=== PATIENT | male | born 1960 | race Two or more races ===

== ENCOUNTER 2020-09-04 14:32 | Inpatient (IN) | payer OTHER ==
[2020-09-04 17:48] VITALS: BMI 25.0
[2020-09-04] MEDS ORDERED: LOPERAMIDE HCL 2 MG CAPSULE PO PRN (18:01)
[2020-09-04] MEDS ORDERED: MAGNESIUM CITRATE 300 ML BOTTLE PO PRN (18:01)
[2020-09-04] MEDS ORDERED: MAG HYDROX/AL HYDROX/SIMETH 30 ML UNIT-DOSE CUP PO PRN (18:01)
[2020-09-04] MEDS ORDERED: MAGNESIUM HYDROX 2400MG/30ML ORAL SUSPENSION 30 ML CUP PO PRN (18:01)
[2020-09-04] MEDS ORDERED: P-EPHED 60MG/TRIPROLIDI 2.5MG TABLET PO PRN (18:01)
[2020-09-04] MEDS ORDERED: ACETAMINOPHEN 325 MG TABLET (FP) PO PRN (18:01)
[2020-09-04] MEDS ORDERED: guaiFENesin 200 MG/10 ML 10 ML UNIT-DOSE CUPS PO PRN (18:01)
[2020-09-04] MEDS ORDERED: NITROGLYCERIN SUBLINGUAL 1/150 0.4 MG TAB SL PRN (21:42)
[2020-09-04] MEDS ORDERED: RANOLAZINE E.R. 1,000 MG TABLET (FP) PO SCH (22:00)
[2020-09-04] MEDS ORDERED: SODIUM ZIRCONIUM CYCLOSILICATE (LOKELMA) 10 GM PACKET PO SCH (22:00)
[2020-09-04] MEDS ORDERED: TUBERCULIN PPD 5 TU/0.1ML VIAL ID ONE ×3 (22:16→23:32)
[2020-09-04] MEDS: INSULIN SLIDING SCALE (NOVOLOG) 1 VIAL SQ SCH (22:43)
[2020-09-04] MEDS: TICAGRELOR 90 MG TABLET PO SCH (23:25)
[2020-09-04] MEDS: KETOROLAC TROMETHAMINE 0.5% EYE DROP 1 DROP DROPS OU SCH (23:26)
[2020-09-04] MEDS: MELATONIN 5 MG TABLETS PO SCH (23:26)
[2020-09-04] MEDS: GABAPENTIN 300 MG CAPSULE PO SCH (23:26)
[2020-09-04] MEDS: prednisoLONE ACETATE 1% OPHTH SUSP 5 ML BOTTLE OU SCH (23:27)
[2020-09-04] MEDS: RANOLAZINE E.R. 1,000 MG TABLET (FP) PO SCH (23:27)
[2020-09-04] MEDS: THIAMINE HCL 100 MG TABLET (FP) PO SCH (23:32)
[2020-09-04] MEDS: ALBUTEROL SO4 HFA INHALER IH SCH (23:32)
[2020-09-04] MEDS: EZETIMIBE 10 MG TABLET (FP) PO SCH (23:33)
[2020-09-05] MEDS: GABAPENTIN 300 MG CAPSULE PO SCH ×3 (06:21→21:06)
[2020-09-05] MEDS: ALBUTEROL SO4 HFA INHALER IH SCH ×3 (06:21→21:09)
[2020-09-05] MEDS: metFORMIN HCL 500 MG TABLET (FP) PO SCH ×2 (07:10→16:41)
[2020-09-05] MEDS: sitaGLIPtin PHOSPHATE 50 MG TABLET PO SCH (07:10)
[2020-09-05] MEDS: INSULIN SLIDING SCALE (NOVOLOG) 1 VIAL SQ SCH ×4 (07:10→21:12)
[2020-09-05] MEDS: TAMSULOSIN HCL 0.4 MG CAP PO SCH (07:50)
[2020-09-05] MEDS: PRENATAL VITAMINS W/ FOLIC ACID TABLET (FP) PO SCH (10:43)
[2020-09-05] MEDS: OMEGA-3 ACID ETHYL ESTERS (FATTY-ACIDS) 1 GM CAPSULE (FP) PO SCH (10:43)
[2020-09-05] MEDS: metoPROLOL SUCCINATE 25 MG TAB.SR.24H (FP) PO SCH (10:44)
[2020-09-05] MEDS: ISOSORBIDE MONONITRATE 60 MG TAB.SR.24H (FP) PO SCH (10:44)
[2020-09-05] MEDS: NIFEdipine E.R. 30 MG TABLET PO SCH (10:45)
[2020-09-05] MEDS: TICAGRELOR 90 MG TABLET PO SCH ×2 (10:46→21:07)
[2020-09-05] MEDS: ASPIRIN 81 MG CHEWABLE TABLETS PO SCH (10:46)
[2020-09-05] MEDS: NICOTINE 7 MG/24 HOURS TOPICAL PATCH TD SCH (10:46)
[2020-09-05] MEDS: prednisoLONE ACETATE 1% OPHTH SUSP 5 ML BOTTLE OU SCH ×4 (10:46→21:08)
[2020-09-05] MEDS: PANTOPRAZOLE 40 MG TABLET PO SCH (10:46)
[2020-09-05] MEDS: KETOROLAC TROMETHAMINE 0.5% EYE DROP 1 DROP DROPS OU SCH ×4 (10:47→21:08)
[2020-09-05] MEDS: SERTRALINE HCL 50 MG TABLET (FP) PO SCH (11:07)
[2020-09-05] MEDS: RANOLAZINE E.R. 1,000 MG TABLET (FP) PO SCH ×2 (11:08→21:06)
[2020-09-05 11:44] LABS: EPI CELLS 31 /uL (0-25.1); HYALINE CASTS 3 /uL (0-3.1); URINE APPEARANCE CLEAR; URINE BACTERIA 443 /uL (0-1359); URINE BILIRUBIN NEGATIVE (NEGATIVE); URINE COLOR YELLOW; URINE GLUCOSE (UA) TRACE (NEGATIVE); URINE KETONE TRACE (NEGATIVE); URINE LEUK ESTERASE 1+ (NEGATIVE); URINE NITRITE NEGATIVE (NEGATIVE); URINE PROTEIN NEGATIVE (NEGATIVE); URINE RBC 4 /uL (0-23.9); URINE UROBILINOGEN 0.2 mg/dL (0.2-1.0); URINE WBC 74 /uL (0-25.8)
[2020-09-05 11:47] LABS: HEMATOCRIT 33.2 % (35.4-49); HEMOGLOBIN 10.4 GM/dL (11.7-16.9); MCH 23.3 pg (25.7-33.7); MCHC 31.2 g/dl (32.0-35.9); MEAN CELL VOLUME 74.6 fl (80-96); MEAN PLT VOLUME 10.7 fl (7.5-11.1); PLATELET COUNT 266 K/MM3 (134-434); RBC 4.45 M/mm3 (4.00-5.60); RDW 18.7 % (11.9-15.9); WHITE BLOOD COUNT 9.1 K/mm3 (4.0-10.0)
[2020-09-05 11:48] LABS: POTASSIUM 4.1 mmol/L (3.5-5.1)
[2020-09-05 11:59] LABS: ALBUMIN 3.8 g/dl (3.4-5.0)
[2020-09-05 12:00] LABS: BLOOD UREA NITROGEN 27.6 mg/dL (7-18)
[2020-09-05] MEDS ORDERED: FLU VACCINE (FLULAVAL) PF 60 MCG/0.5 ML SYRINGE 2020-2021 IM ONE (12:00)
[2020-09-05 12:03] LABS: CREATININE 1.7 mg/dL (0.55-1.3)
[2020-09-05 12:04] LABS: BILIRUBIN,TOTAL 0.3 mg/dL (0.2-1)
[2020-09-05] MEDS: TIOTROPIUM BROMIDE 2.5 MCG (SPIRIVA) RESPIMAT INHALER IH SCH (13:09)
[2020-09-05 14:09] LABS: SICKLE CELL SCREEN NEGATIVE (NEGATIVE)
[2020-09-05] MEDS ORDERED: PT OWN MED DRAWER 7, Y5N ONE ×4 (15:47→21:09)
[2020-09-05] MEDS ORDERED: INSULIN (NOVOLOG) ASPART 100 UNITS/ML 10ML VIAL ONE ×3 (16:40→21:41)
[2020-09-05 17:59] LABS: EPI CELLS >36 /uL (0-25.1); HYALINE CASTS 23 /uL (0-3.1); PH,URINE 5.5 (5.0-8.0); URINE BACTERIA 851 /uL (0-1359); URINE BILIRUBIN NEGATIVE (NEGATIVE); URINE COLOR DK YELLOW; URINE GLUCOSE (UA) TRACE (NEGATIVE); URINE KETONE TRACE (NEGATIVE); URINE LEUK ESTERASE 1+ (NEGATIVE); URINE NITRITE NEGATIVE (NEGATIVE); URINE PROTEIN NEGATIVE (NEGATIVE); URINE RBC 2 /uL (0-23.9); URINE UROBILINOGEN 0.2 mg/dL (0.2-1.0); URINE WBC 27 /uL (0-25.8)
[2020-09-05 19:08] LABS: URINE APPEARANCE SL CLOUDY
[2020-09-05] MEDS: THIAMINE HCL 100 MG TABLET (FP) PO SCH (21:06)
[2020-09-05] MEDS: MELATONIN 5 MG TABLETS PO SCH (21:06)
[2020-09-05] MEDS: MIRTAZAPINE 15 MG TABLET (FP) PO SCH (21:07)
[2020-09-05] MEDS: FERROUS SO4 325 MG TABLET (FP) PO SCH (21:08)
[2020-09-05] MEDS: EZETIMIBE 10 MG TABLET (FP) PO SCH (22:11)
[2020-09-06] MEDS ORDERED: PT OWN MED DRAWER 7, Y5N ONE ×5 (03:24→19:15)
[2020-09-06] MEDS: GABAPENTIN 300 MG CAPSULE PO SCH ×3 (06:08→21:24)
[2020-09-06] MEDS: ALBUTEROL SO4 HFA INHALER IH SCH ×3 (06:08→21:28)
[2020-09-06] MEDS: sitaGLIPtin PHOSPHATE 50 MG TABLET PO SCH (06:09)
[2020-09-06] MEDS: metFORMIN HCL 500 MG TABLET (FP) PO SCH ×2 (06:10→16:27)
[2020-09-06] MEDS: INSULIN SLIDING SCALE (NOVOLOG) 1 VIAL SQ SCH ×4 (06:10→21:28)
[2020-09-06] MEDS: TAMSULOSIN HCL 0.4 MG CAP PO SCH (07:36)
[2020-09-06] MEDS: ASPIRIN 81 MG CHEWABLE TABLETS PO SCH (09:55)
[2020-09-06] MEDS: TIOTROPIUM BROMIDE 2.5 MCG (SPIRIVA) RESPIMAT INHALER IH SCH (09:56)
[2020-09-06] MEDS: FERROUS SO4 325 MG TABLET (FP) PO SCH ×2 (09:56→21:24)
[2020-09-06] MEDS: PRENATAL VITAMINS W/ FOLIC ACID TABLET (FP) PO SCH (09:56)
[2020-09-06] MEDS: SERTRALINE HCL 50 MG TABLET (FP) PO SCH (09:56)
[2020-09-06] MEDS: PANTOPRAZOLE 40 MG TABLET PO SCH (09:56)
[2020-09-06] MEDS: metoPROLOL SUCCINATE 25 MG TAB.SR.24H (FP) PO SCH (09:57)
[2020-09-06] MEDS: NIFEdipine E.R. 30 MG TABLET PO SCH (09:58)
[2020-09-06] MEDS: prednisoLONE ACETATE 1% OPHTH SUSP 5 ML BOTTLE OU SCH ×4 (09:58→21:24)
[2020-09-06] MEDS: KETOROLAC TROMETHAMINE 0.5% EYE DROP 1 DROP DROPS OU SCH ×4 (09:58→21:24)
[2020-09-06] MEDS: ISOSORBIDE MONONITRATE 60 MG TAB.SR.24H (FP) PO SCH (09:58)
[2020-09-06] MEDS: NICOTINE 7 MG/24 HOURS TOPICAL PATCH TD SCH (10:00)
[2020-09-06] MEDS: TICAGRELOR 90 MG TABLET PO SCH ×2 (10:01→22:35)
[2020-09-06] MEDS: OMEGA-3 ACID ETHYL ESTERS (FATTY-ACIDS) 1 GM CAPSULE (FP) PO SCH (10:01)
[2020-09-06] MEDS: RANOLAZINE E.R. 1,000 MG TABLET (FP) PO SCH ×2 (10:05→22:35)
[2020-09-06] MEDS ORDERED: INSULIN (NOVOLOG) ASPART 100 UNITS/ML 10ML VIAL ONE ×2 (11:44→16:27)
[2020-09-06] MEDS ORDERED: MASKS NR ONE (16:53)
[2020-09-06] MEDS: MELATONIN 5 MG TABLETS PO SCH (21:24)
[2020-09-06] MEDS: MIRTAZAPINE 15 MG TABLET (FP) PO SCH (21:24)
[2020-09-06] MEDS: THIAMINE HCL 100 MG TABLET (FP) PO SCH (21:24)
[2020-09-06] MEDS: EZETIMIBE 10 MG TABLET (FP) PO SCH (22:35)
[2020-09-07] MEDS ORDERED: PT OWN MED DRAWER 7, Y5N ONE ×4 (03:21→10:45)
[2020-09-07] MEDS: ALBUTEROL SO4 HFA INHALER IH SCH ×2 (06:00→14:47)
[2020-09-07] MEDS: metFORMIN HCL 500 MG TABLET (FP) PO SCH (06:01)
[2020-09-07] MEDS: GABAPENTIN 300 MG CAPSULE PO SCH ×2 (06:01→14:47)
[2020-09-07] MEDS: sitaGLIPtin PHOSPHATE 50 MG TABLET PO SCH (06:02)
[2020-09-07] MEDS: INSULIN SLIDING SCALE (NOVOLOG) 1 VIAL SQ SCH ×2 (06:02→11:35)
[2020-09-07] MEDS: TAMSULOSIN HCL 0.4 MG CAP PO SCH (07:38)
[2020-09-07] MEDS: NICOTINE 7 MG/24 HOURS TOPICAL PATCH TD SCH (10:12)
[2020-09-07] MEDS: PRENATAL VITAMINS W/ FOLIC ACID TABLET (FP) PO SCH (10:12)
[2020-09-07] MEDS: OMEGA-3 ACID ETHYL ESTERS (FATTY-ACIDS) 1 GM CAPSULE (FP) PO SCH (10:12)
[2020-09-07] MEDS: FERROUS SO4 325 MG TABLET (FP) PO SCH (10:13)
[2020-09-07] MEDS: SERTRALINE HCL 50 MG TABLET (FP) PO SCH (10:13)
[2020-09-07] MEDS: ISOSORBIDE MONONITRATE 60 MG TAB.SR.24H (FP) PO SCH (10:13)
[2020-09-07] MEDS: NIFEdipine E.R. 30 MG TABLET PO SCH (10:13)
[2020-09-07] MEDS: ASPIRIN 81 MG CHEWABLE TABLETS PO SCH (10:13)
[2020-09-07] MEDS: PANTOPRAZOLE 40 MG TABLET PO SCH (10:13)
[2020-09-07] MEDS: RANOLAZINE E.R. 1,000 MG TABLET (FP) PO SCH (10:13)
[2020-09-07] MEDS: TICAGRELOR 90 MG TABLET PO SCH (10:13)
[2020-09-07] MEDS: metoPROLOL SUCCINATE 25 MG TAB.SR.24H (FP) PO SCH (10:13)
[2020-09-07] MEDS: prednisoLONE ACETATE 1% OPHTH SUSP 5 ML BOTTLE OU SCH ×2 (10:14→14:47)
[2020-09-07] MEDS: TIOTROPIUM BROMIDE 2.5 MCG (SPIRIVA) RESPIMAT INHALER IH SCH (10:14)
[2020-09-07] MEDS: KETOROLAC TROMETHAMINE 0.5% EYE DROP 1 DROP DROPS OU SCH ×2 (10:14→14:45)
[2020-09-07 10:27] LABS: POTASSIUM 4.9 mmol/L (3.5-5.1)
[2020-09-07 10:29] LABS: CALCIUM 8.9 mg/dL (8.5-10.1)
[2020-09-07 10:30] LABS: ALBUMIN 3.4 g/dl (3.4-5.0); BLOOD UREA NITROGEN 38.8 mg/dL (7-18)
[2020-09-07 10:35] LABS: BILIRUBIN,TOTAL 0.6 mg/dL (0.2-1); TOT PROT 7.3 g/dl (6.4-8.2)
[2020-09-07 10:42] VITALS: TEMP 97.7
[2020-09-07 10:42] LABS: HEMATOCRIT 28.2 % (35.4-49); MCH 23.4 pg (25.7-33.7); MEAN CELL VOLUME 73.2 fl (80-96); MEAN PLT VOLUME 9.8 fl (7.5-11.1); PLATELET COUNT 202 K/MM3 (134-434); RBC 3.85 M/mm3 (4.00-5.60); RDW 18.9 % (11.9-15.9)
[2020-09-07 10:51] LABS: INR 0.96 (0.83-1.09); PROTHROMBIN TIME (PATIENT) 11.8 SEC (9.7-13.0)
[2020-09-07 11:20] VITALS: BP 133/67; PULSE 67
== END 2020-09-07 15:27 | disposition short-term general hospital (02) | DRG 895 ==
LOC: YASAS 14:32 → Y3W 19:14
PROVIDERS: ADMIT Allergy & Immunology; ATTEND Allergy & Immunology
PROC: HZ42ZZZ Group Counseling for Substance Abuse Treatment, Cognitive-Behavioral (ICD-10-PCS; principal; 2020-09-05)
DX: F10.20 Alcohol dependence, uncomplicated (principal); F33.9 Major depressive disorder, recurrent, unspecified; T82.218A Other mechanical complication of coronary artery bypass graft, initial encounter; F17.210 Nicotine dependence, cigarettes, uncomplicated; F10.282 Alcohol dependence with alcohol-induced sleep disorder; F10.24 Alcohol dependence with alcohol-induced mood disorder; F41.9 Anxiety disorder, unspecified; D64.9 Anemia, unspecified; E78.5 Hyperlipidemia, unspecified; E11.42 Type 2 diabetes mellitus with diabetic polyneuropathy; Z79.4 Long term (current) use of insulin; I25.119 Atherosclerotic heart disease of native coronary artery with unspecified angina pectoris; I10 Essential (primary) hypertension; Z95.1 Presence of aortocoronary bypass graft; Z95.5 Presence of coronary angioplasty implant and graft; R07.89 Other chest pain; I69.898 Other sequelae of other cerebrovascular disease; M21.371 Foot drop, right foot; J44.9 Chronic obstructive pulmonary disease, unspecified; N40.0 Benign prostatic hyperplasia without lower urinary tract symptoms; Z91.5 Personal history of self-harm; Z88.1 Allergy status to other antibiotic agents; Z88.8 Allergy status to other drugs, medicaments and biological substances
CPT/HCPCS: 36415; 80053; 81003; 82962; 85027; 85610; 85660; 86780; 87086; 93005; 93010; G0008; Q2036

== ENCOUNTER 2020-09-07 11:29 | Observation (INO) | payer OTHER ==
[2020-09-07 11:45] VITALS: BMI 25.0
[2020-09-07] MEDS ORDERED: ASPIRIN 81 MG CHEWABLE TABLETS PO ONE ×2 (12:17)
[2020-09-07] MEDS ORDERED: ACETAMINOPHEN 1000 MG/100 ML BAG IVPB ONE (12:18)
[2020-09-07 12:51] LABS: BASO % 0.2 % (0-2.0); HEMATOCRIT 26.5 % (35.4-49); HEMOGLOBIN 8.6 GM/dL (11.7-16.9); LYMPH % 21.4 % (8-40); MCH 23.6 pg (25.7-33.7); MCHC 32.3 g/dl (32.0-35.9); MEAN PLT VOLUME 9.6 fl (7.5-11.1); MONO % 6.3 % (3.8-10.2); NEUT % 71.1 % (42.8-82.8); PLATELET COUNT 177 K/MM3 (134-434); RBC 3.63 M/mm3 (4.00-5.60); RDW 18.9 % (11.9-15.9); WHITE BLOOD COUNT 8.2 K/mm3 (4.0-10.0)
[2020-09-07] MEDS ORDERED: ACETAMINOPHEN INJECTION 100 ML IVPB ONE (12:52)
[2020-09-07] MEDS ORDERED: ASPIRIN 81 MG CHEWABLE TABLETS ONE (12:52)
[2020-09-07 13:00] LABS: INR 0.98 (0.83-1.09); PROTHROMBIN TIME (PATIENT) 12.1 SEC (9.7-13.0)
[2020-09-07 13:02] LABS: ACTIVATED PTT 30.7 SECONDS (25.2-36.5)
[2020-09-07 13:04] LABS: CHLORIDE 105 mmol/L (98-107); SODIUM 134 mmol/L (136-145)
[2020-09-07 13:08] LABS: ALBUMIN 3.3 g/dl (3.4-5.0); ANION GAP 8 MMOL/L (8-16); BLOOD UREA NITROGEN 36.7 mg/dL (7-18); CALCIUM 8.3 mg/dL (8.5-10.1); CO2 22 mmol/L (21-32); GLUCOSE,RANDOM 212 mg/dL (74-106); LIPASE 251 U/L (73-393)
[2020-09-07 13:10] LABS: CREATININE 1.8 mg/dL (0.55-1.3); SGOT/AST 11 U/L (15-37); SGPT/ALT 19 U/L (13-61)
[2020-09-07] MEDS ORDERED: SODIUM CHLORIDE 0.9% 500 ML INFUS.BAG IV ONE ×2 (13:11)
[2020-09-07 13:12] LABS: BILIRUBIN,TOTAL 0.1 mg/dL (0.2-1); TOT PROT 7.2 g/dl (6.4-8.2)
[2020-09-07 13:13] LABS: ALK PHOS 84 U/L (45-117)
[2020-09-07] MEDS ORDERED: NITROGLYCERIN SUBLINGUAL 1/150 0.4 MG TAB SL PRN ×2 (14:11→15:06)
[2020-09-07] MEDS ORDERED: ACETAMINOPHEN 325 MG TABLET (FP) ONE (15:42)
[2020-09-07 15:51] LABS: URINE APPEARANCE CLEAR; URINE BILIRUBIN NEGATIVE (NEGATIVE); URINE COLOR YELLOW; URINE GLUCOSE (UA) NEGATIVE (NEGATIVE); URINE KETONE NEGATIVE (NEGATIVE); URINE LEUK ESTERASE NEGATIVE (NEGATIVE); URINE NITRITE NEGATIVE (NEGATIVE); URINE PROTEIN NEGATIVE (NEGATIVE); URINE UROBILINOGEN 0.2 mg/dL (0.2-1.0)
[2020-09-07] MEDS: ACETAMINOPHEN 325 MG TABLET (FP) PO PRN (15:59)
[2020-09-07] MEDS: INSULIN SLIDING SCALE (NOVOLOG) 1 VIAL SQ SCH ×2 (17:11→22:21)
[2020-09-07] MEDS ORDERED: ALBUTEROL SO4 HFA INHALER IH SCH (20:00)
[2020-09-07] MEDS: TICAGRELOR 90 MG TABLET PO SCH (22:20)
[2020-09-07] MEDS: MIRTAZAPINE 15 MG TABLET (FP) PO SCH (22:21)
[2020-09-07] MEDS: RANOLAZINE E.R. 500 MG TABLET (FP) PO SCH (22:21)
[2020-09-07] MEDS ORDERED: TICAGRELOR 90 MG TABLET PO ONE (22:23)
[2020-09-07] MEDS ORDERED: MIRTAZAPINE 15 MG TABLET (FP) ONE (22:23)
[2020-09-07] MEDS ORDERED: ALBUTEROL SO4 HFA INHALER IH ONE (22:30)
[2020-09-08] MEDS: RANOLAZINE E.R. 500 MG TABLET (FP) PO SCH ×3 (01:21→22:31)
[2020-09-08] MEDS ORDERED: ACETAMINOPHEN 325 MG TABLET (FP) ONE (05:10)
[2020-09-08] MEDS: ACETAMINOPHEN 325 MG TABLET (FP) PO PRN (05:14)
[2020-09-08 08:04] LABS: HEMATOCRIT 25.2 % (35.4-49); HEMOGLOBIN 8.3 GM/dL (11.7-16.9); MCH 23.6 pg (25.7-33.7); MCHC 32.8 g/dl (32.0-35.9); MEAN CELL VOLUME 71.9 fl (80-96); MEAN PLT VOLUME 9.5 fl (7.5-11.1); PLATELET COUNT 179 K/MM3 (134-434); RBC 3.51 M/mm3 (4.00-5.60); RDW 19.1 % (11.9-15.9); WHITE BLOOD COUNT 9.4 K/mm3 (4.0-10.0)
[2020-09-08 08:26] LABS: ALBUMIN 3.2 g/dl (3.4-5.0); BLOOD UREA NITROGEN 32.4 mg/dL (7-18); CALCIUM 8.4 mg/dL (8.5-10.1); MAGNESIUM 1.4 mg/dL (1.8-2.4)
[2020-09-08 08:29] LABS: CREATININE 1.5 mg/dL (0.55-1.3); PHOSPHOROUS 3.1 mg/dL (2.5-4.9)
[2020-09-08 08:31] LABS: BILIRUBIN,TOTAL 0.4 mg/dL (0.2-1); TOT PROT 6.7 g/dl (6.4-8.2)
[2020-09-08] MEDS: ALBUTEROL SO4 0.083% IH SOL 2.5 MG/3 ML VIAL.NEB. NEB SCH ×3 (09:00→21:10)
[2020-09-08] MEDS: INSULIN SLIDING SCALE (NOVOLOG) 1 VIAL SQ SCH ×4 (09:56→22:30)
[2020-09-08] MEDS ORDERED: TICAGRELOR 90 MG TABLET PO ONE ×2 (10:19→21:00)
[2020-09-08] MEDS ORDERED: ASPIRIN 81 MG CHEWABLE TABLETS ONE (10:19)
[2020-09-08] MEDS ORDERED: ISOSORBIDE MONONITRATE 60 MG TAB.SR.24H (FP) PO ONE (10:20)
[2020-09-08] MEDS ORDERED: THIAMINE HCL 100 MG TABLET (FP) ONE (10:20)
[2020-09-08] MEDS ORDERED: NIFEdipine E.R. 30 MG TABLET ONE (10:20)
[2020-09-08] MEDS ORDERED: metoPROLOL SUCCINATE 25 MG TAB.SR.24H (FP) ONE (10:21)
[2020-09-08] MEDS ORDERED: TAMSULOSIN HCL 0.4 MG CAP ONE (10:21)
[2020-09-08] MEDS ORDERED: FOLIC ACID 1 MG TABLET (FP) ONE (10:21)
[2020-09-08] MEDS ORDERED: CHOLECALCIFEROL (VIT D3) 1,000 UNIT (25 MCG) TABLET ONE (10:21)
[2020-09-08] MEDS ORDERED: LOSARTAN POTASSIUM 50 MG TABLET ONE (10:21)
[2020-09-08] MEDS: TICAGRELOR 90 MG TABLET PO SCH ×2 (10:33→21:10)
[2020-09-08] MEDS: ASPIRIN 81 MG CHEWABLE TABLETS PO SCH (10:33)
[2020-09-08] MEDS: LOSARTAN POTASSIUM 50 MG TABLET PO SCH (10:34)
[2020-09-08] MEDS: metoPROLOL SUCCINATE 25 MG TAB.SR.24H (FP) PO SCH (10:34)
[2020-09-08] MEDS: NIFEdipine E.R. 30 MG TABLET PO SCH (10:34)
[2020-09-08] MEDS: TIOTROPIUM BROMIDE 2.5 MCG (SPIRIVA) RESPIMAT INHALER IH SCH ×2 (10:34→10:35)
[2020-09-08] MEDS: PANTOPRAZOLE 40 MG TABLET PO SCH (10:34)
[2020-09-08] MEDS: THIAMINE HCL 100 MG TABLET (FP) PO SCH (10:34)
[2020-09-08] MEDS: SERTRALINE HCL 50 MG TABLET (FP) PO SCH (10:34)
[2020-09-08] MEDS: TAMSULOSIN HCL 0.4 MG CAP PO SCH (10:34)
[2020-09-08] MEDS: FOLIC ACID 1 MG TABLET (FP) PO SCH (10:34)
[2020-09-08] MEDS: ISOSORBIDE MONONITRATE 60 MG TAB.SR.24H (FP) PO SCH (10:34)
[2020-09-08] MEDS: EZETIMIBE 10 MG TABLET (FP) PO SCH (10:34)
[2020-09-08] MEDS ORDERED: MAGNESIUM SULF 50% (8.12 MEQ/2 ML-1 GM VIAL) IVPB ONE (14:58)
[2020-09-08] MEDS ORDERED: MAGNESIUM SULFATE IN WATER 2 GM/50 ML IVPB IVPB ONE (15:24)
[2020-09-08 17:02] LABS: RETICULOCYTES 2.12 % (0.5-1.5)
[2020-09-08 19:55] LABS: INR 1.07 (0.83-1.09); PROTHROMBIN TIME (PATIENT) 12.9 SEC (9.7-13.0)
[2020-09-08] MEDS ORDERED: morphine SULFATE 4 MG/ML VIAL IVPUSH ONE (20:42)
[2020-09-08] MEDS ORDERED: MIRTAZAPINE 15 MG TABLET (FP) ONE (21:00)
[2020-09-08] MEDS ORDERED: ALBUTEROL SO4 0.083% IH SOL 2.5 MG/3 ML VIAL.NEB. NEB ONE (21:00)
[2020-09-08] MEDS: MIRTAZAPINE 15 MG TABLET (FP) PO SCH (21:10)
[2020-09-09 07:12] LABS: BASO % 0.1 % (0-2.0); HEMATOCRIT 29.5 % (35.4-49); HEMOGLOBIN 9.5 GM/dL (11.7-16.9); LYMPH % 24.8 % (8-40); MCH 23.5 pg (25.7-33.7); MCHC 32.1 g/dl (32.0-35.9); MEAN CELL VOLUME 73.3 fl (80-96); MEAN PLT VOLUME 9.2 fl (7.5-11.1); MONO % 7.7 % (3.8-10.2); NEUT % 65.4 % (42.8-82.8); PLATELET COUNT 190 K/MM3 (134-434); RBC 4.02 M/mm3 (4.00-5.60); RDW 19.6 % (11.9-15.9); WHITE BLOOD COUNT 8.1 K/mm3 (4.0-10.0)
[2020-09-09 07:32] LABS: CALCIUM 8.5 mg/dL (8.5-10.1)
[2020-09-09 07:33] LABS: MAGNESIUM 1.9 mg/dL (1.8-2.4)
[2020-09-09 07:36] LABS: CREATININE 1.4 mg/dL (0.55-1.3); PHOSPHOROUS 3.6 mg/dL (2.5-4.9)
[2020-09-09 07:37] LABS: BILIRUBIN,TOTAL 0.6 mg/dL (0.2-1); TOT PROT 6.6 g/dl (6.4-8.2)
[2020-09-09] MEDS ORDERED: SODIUM ZIRCONIUM CYCLOSILICATE (LOKELMA) 5 GM PACKET PO ONE (07:50)
[2020-09-09] MEDS: INSULIN SLIDING SCALE (NOVOLOG) 1 VIAL SQ SCH ×2 (07:53→12:49)
[2020-09-09] MEDS ORDERED: SODIUM ZIRCONIUM CYCLOSILICATE (LOKELMA) 5 GM PACKET ONE (09:06)
[2020-09-09] MEDS ORDERED: THIAMINE HCL 100 MG TABLET (FP) ONE (09:33)
[2020-09-09] MEDS ORDERED: metoPROLOL SUCCINATE 25 MG TAB.SR.24H (FP) ONE (09:34)
[2020-09-09] MEDS ORDERED: LOSARTAN POTASSIUM 50 MG TABLET ONE (09:34)
[2020-09-09] MEDS ORDERED: ISOSORBIDE MONONITRATE 60 MG TAB.SR.24H (FP) PO ONE (09:34)
[2020-09-09] MEDS ORDERED: NIFEdipine E.R. 30 MG TABLET ONE (09:34)
[2020-09-09] MEDS ORDERED: FOLIC ACID 1 MG TABLET (FP) ONE (09:35)
[2020-09-09] MEDS ORDERED: TAMSULOSIN HCL 0.4 MG CAP ONE (09:35)
[2020-09-09] MEDS ORDERED: SERTRALINE HCL 50 MG TABLET (FP) ONE (09:35)
[2020-09-09] MEDS: TAMSULOSIN HCL 0.4 MG CAP PO SCH (10:36)
[2020-09-09] MEDS: metoPROLOL SUCCINATE 25 MG TAB.SR.24H (FP) PO SCH (10:36)
[2020-09-09] MEDS: LOSARTAN POTASSIUM 50 MG TABLET PO SCH (10:36)
[2020-09-09] MEDS: ASPIRIN 81 MG CHEWABLE TABLETS PO SCH (10:36)
[2020-09-09] MEDS: NIFEdipine E.R. 30 MG TABLET PO SCH (10:36)
[2020-09-09] MEDS: FOLIC ACID 1 MG TABLET (FP) PO SCH (10:36)
[2020-09-09] MEDS: PANTOPRAZOLE 40 MG TABLET PO SCH (10:36)
[2020-09-09] MEDS: RANOLAZINE E.R. 500 MG TABLET (FP) PO SCH (10:36)
[2020-09-09] MEDS: ISOSORBIDE MONONITRATE 60 MG TAB.SR.24H (FP) PO SCH (10:36)
[2020-09-09] MEDS: THIAMINE HCL 100 MG TABLET (FP) PO SCH (10:36)
[2020-09-09] MEDS: TICAGRELOR 90 MG TABLET PO SCH (10:36)
[2020-09-09] MEDS: EZETIMIBE 10 MG TABLET (FP) PO SCH (10:37)
[2020-09-09] MEDS: SERTRALINE HCL 50 MG TABLET (FP) PO SCH (10:37)
[2020-09-09] MEDS: TIOTROPIUM BROMIDE 2.5 MCG (SPIRIVA) RESPIMAT INHALER IH SCH (11:08)
[2020-09-09] MEDS: ALBUTEROL SO4 0.083% IH SOL 2.5 MG/3 ML VIAL.NEB. NEB SCH (11:08)
[2020-09-09] MEDS ORDERED: FERRIC CARBOXYMALTOSE 750 MG in SODIUM CHLORIDE 250 ML IVPB ONE (12:00)
[2020-09-09 16:59] VITALS: BP 120/74; PULSE 72; TEMP 98.2
== END 2020-09-09 15:30 | disposition home or self-care (01) ==
LOC: JER 11:29 → JERBED 13:16
PROVIDERS: ADMIT Internal Medicine; ATTEND Student in an Organized Health Care Education/Training Program
PROC: 3E0F7GC Introduction of Other Therapeutic Substance into Respiratory Tract, Via Natural or Artificial Opening (ICD-10-PCS; principal; 2020-09-07)
PROC: 3E033NZ Introduction of Analgesics, Hypnotics, Sedatives into Peripheral Vein, Percutaneous Approach (ICD-10-PCS; 2020-09-07)
PROC: 3E033GC Introduction of Other Therapeutic Substance into Peripheral Vein, Percutaneous Approach (ICD-10-PCS; 2020-09-07)
DX: I25.10 Atherosclerotic heart disease of native coronary artery without angina pectoris (principal); I13.10 Hypertensive heart and chronic kidney disease without heart failure, with stage 1 through stage 4 chronic kidney disease, or unspecified chronic kidney disease; Z95.1 Presence of aortocoronary bypass graft; Z95.5 Presence of coronary angioplasty implant and graft; I10 Essential (primary) hypertension; E11.22 Type 2 diabetes mellitus with diabetic chronic kidney disease; N18.9 Chronic kidney disease, unspecified; K21.9 Gastro-esophageal reflux disease without esophagitis; E78.5 Hyperlipidemia, unspecified; M21.371 Foot drop, right foot; Z86.73 Personal history of transient ischemic attack (TIA), and cerebral infarction without residual deficits; I11.9 Hypertensive heart disease without heart failure; E87.5 Hyperkalemia; D50.9 Iron deficiency anemia, unspecified; F41.8 Other specified anxiety disorders; R07.9 Chest pain, unspecified; N40.0 Benign prostatic hyperplasia without lower urinary tract symptoms; Z88.8 Allergy status to other drugs, medicaments and biological substances; F17.210 Nicotine dependence, cigarettes, uncomplicated; F63.0 Pathological gambling; F10.10 Alcohol abuse, uncomplicated
CPT/HCPCS: 36415; 71046-TC-FY; 76775-TC; 80053; 81003; 82550; 82553; 82607; 82728; 82746; 82962; 83540; 83550; 83690; 83735; 84100; 84484; 85025; 85027; 85045; 85610; 85730; 87086; 93005; 93010; 94640; 96361; 96365; 96374; 96375; 96376; 99285-25; C9803; G0378; J0131; J1439; U0003

== ENCOUNTER 2020-09-09 16:31 | Inpatient (IN) | payer OTHER ==
[2020-09-09] MEDS ORDERED: MAGNESIUM CITRATE 300 ML BOTTLE PO PRN (18:48)
[2020-09-09] MEDS ORDERED: ACETAMINOPHEN 325 MG TABLET (FP) PO PRN (18:48)
[2020-09-09] MEDS ORDERED: MAG HYDROX/AL HYDROX/SIMETH 30 ML UNIT-DOSE CUP PO PRN (18:48)
[2020-09-09] MEDS ORDERED: P-EPHED 60MG/TRIPROLIDI 2.5MG TABLET PO PRN (18:48)
[2020-09-09] MEDS ORDERED: guaiFENesin 200 MG/10 ML 10 ML UNIT-DOSE CUPS PO PRN (18:48)
[2020-09-09] MEDS ORDERED: LOPERAMIDE HCL 2 MG CAPSULE PO PRN (18:48)
[2020-09-09] MEDS ORDERED: MAGNESIUM HYDROX 2400MG/30ML ORAL SUSPENSION 30 ML CUP PO PRN (18:48)
[2020-09-09] MEDS ORDERED: NITROGLYCERIN SUBLINGUAL 1/150 0.4 MG TAB SL SCH (19:00)
[2020-09-09] MEDS: MELATONIN 5 MG TABLETS PO SCH (21:00)
[2020-09-09] MEDS: THIAMINE HCL 100 MG TABLET (FP) PO SCH (21:00)
[2020-09-09] MEDS: INSULIN SLIDING SCALE (NOVOLOG) 1 VIAL SQ SCH (21:01)
[2020-09-09] MEDS: RANOLAZINE E.R. 500 MG TABLET (FP) PO SCH (21:01)
[2020-09-09] MEDS: TICAGRELOR 90 MG TABLET PO SCH (23:00)
[2020-09-09] MEDS: KETOROLAC TROMETHAMINE 0.5% EYE DROP 1 DROP DROPS OD SCH (23:00)
[2020-09-09] MEDS: prednisoLONE ACETATE 1% OPHTH SUSP 5 ML BOTTLE OD SCH (23:00)
[2020-09-10] MEDS: metFORMIN HCL 500 MG TABLET (FP) PO SCH ×2 (06:45→17:11)
[2020-09-10] MEDS: sitaGLIPtin PHOSPHATE 50 MG TABLET PO SCH (06:45)
[2020-09-10] MEDS: INSULIN SLIDING SCALE (NOVOLOG) 1 VIAL SQ SCH ×4 (06:45→21:37)
[2020-09-10] MEDS: TAMSULOSIN HCL 0.4 MG CAP PO SCH (08:00)
[2020-09-10] MEDS ORDERED: FOLIC ACID 1 MG TABLET (FP) PO SCH (10:00)
[2020-09-10] MEDS: PRENATAL VITAMINS W/ FOLIC ACID TABLET (FP) PO SCH (10:06)
[2020-09-10] MEDS: ISOSORBIDE MONONITRATE 60 MG TAB.SR.24H (FP) PO SCH (10:07)
[2020-09-10] MEDS: SERTRALINE HCL 50 MG TABLET (FP) PO SCH (10:07)
[2020-09-10] MEDS: ASPIRIN 81 MG CHEWABLE TABLETS PO SCH (10:07)
[2020-09-10] MEDS: FERROUS SO4 325 MG TABLET (FP) PO SCH (10:08)
[2020-09-10] MEDS: PANTOPRAZOLE 40 MG TABLET PO SCH (10:08)
[2020-09-10] MEDS: metoPROLOL SUCCINATE 25 MG TAB.SR.24H (FP) PO SCH (10:09)
[2020-09-10] MEDS: TICAGRELOR 90 MG TABLET PO SCH ×2 (10:10→21:34)
[2020-09-10] MEDS: RANOLAZINE E.R. 500 MG TABLET (FP) PO SCH ×2 (10:11→21:35)
[2020-09-10] MEDS: EZETIMIBE 10 MG TABLET (FP) PO SCH (10:12)
[2020-09-10] MEDS: KETOROLAC TROMETHAMINE 0.5% EYE DROP 1 DROP DROPS OD SCH ×4 (10:13→21:38)
[2020-09-10] MEDS: NIFEdipine E.R. 30 MG TABLET PO SCH (10:13)
[2020-09-10] MEDS: prednisoLONE ACETATE 1% OPHTH SUSP 5 ML BOTTLE OD SCH ×4 (10:13→21:38)
[2020-09-10] MEDS ORDERED: PT OWN MED DRAWER 7, Y5N ONE ×3 (10:16→19:28)
[2020-09-10] MEDS: TIOTROPIUM BROMIDE 2.5 MCG (SPIRIVA) RESPIMAT INHALER IH SCH (10:54)
[2020-09-10] MEDS: OMEGA-3 ACID ETHYL ESTERS (FATTY-ACIDS) 1 GM CAPSULE (FP) PO SCH (10:55)
[2020-09-10] MEDS ORDERED: NITROGLYCERIN SUBLINGUAL 1/150 0.4 MG TAB SL PRN (11:31)
[2020-09-10] MEDS: LOSARTAN POTASSIUM 50 MG TABLET PO SCH (11:31)
[2020-09-10] MEDS: THIAMINE HCL 100 MG TABLET (FP) PO SCH (21:34)
[2020-09-10] MEDS: MELATONIN 5 MG TABLETS PO SCH (21:34)
[2020-09-10] MEDS: MIRTAZAPINE 15 MG TABLET (FP) PO SCH (21:35)
[2020-09-11] MEDS ORDERED: PT OWN MED DRAWER 7, Y5N ONE ×3 (06:23→18:39)
[2020-09-11] MEDS: INSULIN SLIDING SCALE (NOVOLOG) 1 VIAL SQ SCH ×4 (06:25→21:09)
[2020-09-11] MEDS: metFORMIN HCL 500 MG TABLET (FP) PO SCH ×2 (06:25→16:23)
[2020-09-11] MEDS: sitaGLIPtin PHOSPHATE 50 MG TABLET PO SCH (06:25)
[2020-09-11] MEDS: TAMSULOSIN HCL 0.4 MG CAP PO SCH (07:55)
[2020-09-11] MEDS: ASPIRIN 81 MG CHEWABLE TABLETS PO SCH (10:38)
[2020-09-11] MEDS: TICAGRELOR 90 MG TABLET PO SCH ×2 (10:39→21:05)
[2020-09-11] MEDS: LOSARTAN POTASSIUM 50 MG TABLET PO SCH (10:39)
[2020-09-11] MEDS: FERROUS SO4 325 MG TABLET (FP) PO SCH ×2 (10:39→21:07)
[2020-09-11] MEDS: PANTOPRAZOLE 40 MG TABLET PO SCH (10:40)
[2020-09-11] MEDS: PRENATAL VITAMINS W/ FOLIC ACID TABLET (FP) PO SCH (10:40)
[2020-09-11] MEDS: NIFEdipine E.R. 30 MG TABLET PO SCH (10:40)
[2020-09-11] MEDS: OMEGA-3 ACID ETHYL ESTERS (FATTY-ACIDS) 1 GM CAPSULE (FP) PO SCH (10:40)
[2020-09-11] MEDS: EZETIMIBE 10 MG TABLET (FP) PO SCH (10:41)
[2020-09-11] MEDS: SERTRALINE HCL 50 MG TABLET (FP) PO SCH (10:41)
[2020-09-11] MEDS: RANOLAZINE E.R. 500 MG TABLET (FP) PO SCH ×2 (10:41→21:05)
[2020-09-11] MEDS: metoPROLOL SUCCINATE 25 MG TAB.SR.24H (FP) PO SCH (10:41)
[2020-09-11] MEDS: KETOROLAC TROMETHAMINE 0.5% EYE DROP 1 DROP DROPS OD SCH ×4 (10:43→21:06)
[2020-09-11] MEDS: prednisoLONE ACETATE 1% OPHTH SUSP 5 ML BOTTLE OD SCH ×4 (10:43→21:06)
[2020-09-11] MEDS: ISOSORBIDE MONONITRATE 60 MG TAB.SR.24H (FP) PO SCH (10:43)
[2020-09-11] MEDS: TIOTROPIUM BROMIDE 2.5 MCG (SPIRIVA) RESPIMAT INHALER IH SCH (10:44)
[2020-09-11 12:20] LABS: HEMATOCRIT 29.9 % (35.4-49); HEMOGLOBIN 9.6 GM/dL (11.7-16.9); MCHC 32.1 g/dl (32.0-35.9); MEAN CELL VOLUME 74.7 fl (80-96); MEAN PLT VOLUME 9.8 fl (7.5-11.1); PLATELET COUNT 211 K/MM3 (134-434); POTASSIUM 5.2 mmol/L (3.5-5.1); RBC 4.01 M/mm3 (4.00-5.60); WHITE BLOOD COUNT 9.2 K/mm3 (4.0-10.0)
[2020-09-11 12:25] LABS: CALCIUM 9.4 mg/dL (8.5-10.1)
[2020-09-11 12:27] LABS: ALBUMIN 3.6 g/dl (3.4-5.0); BLOOD UREA NITROGEN 35.9 mg/dL (7-18)
[2020-09-11 12:30] LABS: CREATININE 1.7 mg/dL (0.55-1.3)
[2020-09-11 12:31] LABS: BILIRUBIN,TOTAL 0.6 mg/dL (0.2-1); TOT PROT 7.6 g/dl (6.4-8.2)
[2020-09-11] MEDS: NICOTINE 7 MG/24 HOURS TOPICAL PATCH TD SCH (12:53)
[2020-09-11] MEDS: MELATONIN 5 MG TABLETS PO SCH (21:05)
[2020-09-11] MEDS: THIAMINE HCL 100 MG TABLET (FP) PO SCH (21:05)
[2020-09-11] MEDS: MIRTAZAPINE 15 MG TABLET (FP) PO SCH (21:05)
[2020-09-12] MEDS: FERROUS SO4 325 MG TABLET (FP) PO SCH ×3 (06:22→21:01)
[2020-09-12] MEDS: metFORMIN HCL 500 MG TABLET (FP) PO SCH ×2 (06:23→16:36)
[2020-09-12] MEDS: INSULIN SLIDING SCALE (NOVOLOG) 1 VIAL SQ SCH ×4 (06:23→21:03)
[2020-09-12] MEDS: sitaGLIPtin PHOSPHATE 50 MG TABLET PO SCH (06:23)
[2020-09-12] MEDS: TAMSULOSIN HCL 0.4 MG CAP PO SCH (07:45)
[2020-09-12] MEDS: OMEGA-3 ACID ETHYL ESTERS (FATTY-ACIDS) 1 GM CAPSULE (FP) PO SCH (10:20)
[2020-09-12] MEDS: TIOTROPIUM BROMIDE 2.5 MCG (SPIRIVA) RESPIMAT INHALER IH SCH (10:20)
[2020-09-12] MEDS: PRENATAL VITAMINS W/ FOLIC ACID TABLET (FP) PO SCH (10:20)
[2020-09-12] MEDS: ISOSORBIDE MONONITRATE 60 MG TAB.SR.24H (FP) PO SCH (10:21)
[2020-09-12] MEDS: ASPIRIN 81 MG CHEWABLE TABLETS PO SCH (10:21)
[2020-09-12] MEDS: LOSARTAN POTASSIUM 50 MG TABLET PO SCH (10:21)
[2020-09-12] MEDS: metoPROLOL SUCCINATE 25 MG TAB.SR.24H (FP) PO SCH (10:21)
[2020-09-12] MEDS: NIFEdipine E.R. 30 MG TABLET PO SCH (10:21)
[2020-09-12] MEDS: NICOTINE 7 MG/24 HOURS TOPICAL PATCH TD SCH (10:21)
[2020-09-12] MEDS: KETOROLAC TROMETHAMINE 0.5% EYE DROP 1 DROP DROPS OD SCH ×4 (10:22→21:04)
[2020-09-12] MEDS: prednisoLONE ACETATE 1% OPHTH SUSP 5 ML BOTTLE OD SCH ×4 (10:22→21:03)
[2020-09-12] MEDS: RANOLAZINE E.R. 500 MG TABLET (FP) PO SCH ×2 (10:22→21:01)
[2020-09-12] MEDS: PANTOPRAZOLE 40 MG TABLET PO SCH (10:23)
[2020-09-12] MEDS: SERTRALINE HCL 50 MG TABLET (FP) PO SCH (10:23)
[2020-09-12] MEDS: EZETIMIBE 10 MG TABLET (FP) PO SCH (10:23)
[2020-09-12] MEDS: TICAGRELOR 90 MG TABLET PO SCH ×2 (10:23→21:01)
[2020-09-12] MEDS ORDERED: SODIUM POLYSTYRENE SULFONATE 15 GM/60 ML BOTTLE PO ONE (11:24)
[2020-09-12] MEDS ORDERED: NIFEdipine E.R. 30 MG TABLET PO SCH (16:30)
[2020-09-12] MEDS ORDERED: ISOSORBIDE MONONITRATE 60 MG TAB.SR.24H (FP) PO SCH (16:30)
[2020-09-12] MEDS ORDERED: LOSARTAN POTASSIUM 50 MG TABLET PO SCH (16:30)
[2020-09-12] MEDS ORDERED: metoPROLOL SUCCINATE 25 MG TAB.SR.24H (FP) PO SCH (16:30)
[2020-09-12] MEDS ORDERED: PT OWN MED DRAWER 7, Y5N ONE (19:11)
[2020-09-12] MEDS: THIAMINE HCL 100 MG TABLET (FP) PO SCH (21:00)
[2020-09-12] MEDS: MELATONIN 5 MG TABLETS PO SCH (21:00)
[2020-09-12] MEDS: MIRTAZAPINE 15 MG TABLET (FP) PO SCH (21:02)
[2020-09-13] MEDS: FERROUS SO4 325 MG TABLET (FP) PO SCH ×3 (06:34→21:15)
[2020-09-13] MEDS: metFORMIN HCL 500 MG TABLET (FP) PO SCH ×2 (06:35→16:34)
[2020-09-13] MEDS: INSULIN SLIDING SCALE (NOVOLOG) 1 VIAL SQ SCH ×4 (06:36→21:19)
[2020-09-13] MEDS: sitaGLIPtin PHOSPHATE 50 MG TABLET PO SCH (07:03)
[2020-09-13] MEDS: TAMSULOSIN HCL 0.4 MG CAP PO SCH (07:37)
[2020-09-13] MEDS: KETOROLAC TROMETHAMINE 0.5% EYE DROP 1 DROP DROPS OD SCH ×4 (09:57→21:17)
[2020-09-13] MEDS: prednisoLONE ACETATE 1% OPHTH SUSP 5 ML BOTTLE OD SCH ×4 (09:57→21:16)
[2020-09-13] MEDS: TIOTROPIUM BROMIDE 2.5 MCG (SPIRIVA) RESPIMAT INHALER IH SCH (09:57)
[2020-09-13] MEDS: NICOTINE 7 MG/24 HOURS TOPICAL PATCH TD SCH (09:58)
[2020-09-13] MEDS: NIFEdipine E.R. 30 MG TABLET PO SCH (09:58)
[2020-09-13] MEDS: ASPIRIN 81 MG CHEWABLE TABLETS PO SCH (09:58)
[2020-09-13] MEDS: SERTRALINE HCL 50 MG TABLET (FP) PO SCH (09:58)
[2020-09-13] MEDS: ISOSORBIDE MONONITRATE 60 MG TAB.SR.24H (FP) PO SCH (09:59)
[2020-09-13] MEDS: PRENATAL VITAMINS W/ FOLIC ACID TABLET (FP) PO SCH (09:59)
[2020-09-13] MEDS: FOLIC ACID 1 MG TABLET (FP) PO SCH (09:59)
[2020-09-13] MEDS: metoPROLOL SUCCINATE 25 MG TAB.SR.24H (FP) PO SCH (09:59)
[2020-09-13] MEDS: LOSARTAN POTASSIUM 50 MG TABLET PO SCH (10:00)
[2020-09-13] MEDS ORDERED: PT OWN MED DRAWER 7, Y5N ONE ×4 (10:04→21:22)
[2020-09-13] MEDS: EZETIMIBE 10 MG TABLET (FP) PO SCH (10:06)
[2020-09-13] MEDS: RANOLAZINE E.R. 500 MG TABLET (FP) PO SCH ×2 (10:06→21:16)
[2020-09-13] MEDS: OMEGA-3 ACID ETHYL ESTERS (FATTY-ACIDS) 1 GM CAPSULE (FP) PO SCH (10:14)
[2020-09-13] MEDS: PANTOPRAZOLE 40 MG TABLET PO SCH (10:15)
[2020-09-13] MEDS: TICAGRELOR 90 MG TABLET PO SCH ×2 (10:20→21:18)
[2020-09-13] MEDS: MELATONIN 5 MG TABLETS PO SCH (21:14)
[2020-09-13] MEDS: THIAMINE HCL 100 MG TABLET (FP) PO SCH (21:14)
[2020-09-13] MEDS: MIRTAZAPINE 15 MG TABLET (FP) PO SCH (21:15)
[2020-09-13] MEDS ORDERED: INSULIN (NOVOLOG) ASPART 100 UNITS/ML 10ML VIAL ONE (22:03)
[2020-09-13] MEDS ORDERED: INSULIN (LEVEMIR) 100 UNITS/ML UNITS SQ ONE (22:03)
[2020-09-14] MEDS: FERROUS SO4 325 MG TABLET (FP) PO SCH ×3 (06:54→21:07)
[2020-09-14] MEDS: metFORMIN HCL 500 MG TABLET (FP) PO SCH ×2 (06:54→16:37)
[2020-09-14] MEDS: sitaGLIPtin PHOSPHATE 50 MG TABLET PO SCH (06:54)
[2020-09-14] MEDS: INSULIN SLIDING SCALE (NOVOLOG) 1 VIAL SQ SCH ×4 (07:13→21:13)
[2020-09-14] MEDS ORDERED: PT OWN MED DRAWER 7, Y5N ONE (08:41)
[2020-09-14] MEDS: TAMSULOSIN HCL 0.4 MG CAP PO SCH (08:45)
[2020-09-14] MEDS: PRENATAL VITAMINS W/ FOLIC ACID TABLET (FP) PO SCH (10:00)
[2020-09-14] MEDS: ISOSORBIDE MONONITRATE 60 MG TAB.SR.24H (FP) PO SCH (10:01)
[2020-09-14] MEDS: FOLIC ACID 1 MG TABLET (FP) PO SCH (10:01)
[2020-09-14] MEDS: ASPIRIN 81 MG CHEWABLE TABLETS PO SCH (10:01)
[2020-09-14] MEDS: SERTRALINE HCL 50 MG TABLET (FP) PO SCH (10:01)
[2020-09-14] MEDS: OMEGA-3 ACID ETHYL ESTERS (FATTY-ACIDS) 1 GM CAPSULE (FP) PO SCH (10:01)
[2020-09-14] MEDS: TICAGRELOR 90 MG TABLET PO SCH ×2 (10:02→21:08)
[2020-09-14] MEDS: NIFEdipine E.R. 30 MG TABLET PO SCH (10:02)
[2020-09-14] MEDS: LOSARTAN POTASSIUM 50 MG TABLET PO SCH (10:02)
[2020-09-14] MEDS: PANTOPRAZOLE 40 MG TABLET PO SCH (10:03)
[2020-09-14] MEDS: EZETIMIBE 10 MG TABLET (FP) PO SCH (10:03)
[2020-09-14] MEDS: metoPROLOL SUCCINATE 25 MG TAB.SR.24H (FP) PO SCH (10:03)
[2020-09-14] MEDS: RANOLAZINE E.R. 500 MG TABLET (FP) PO SCH ×2 (10:03→21:09)
[2020-09-14] MEDS: TIOTROPIUM BROMIDE 2.5 MCG (SPIRIVA) RESPIMAT INHALER IH SCH (10:06)
[2020-09-14] MEDS: NICOTINE 7 MG/24 HOURS TOPICAL PATCH TD SCH (10:07)
[2020-09-14] MEDS: KETOROLAC TROMETHAMINE 0.5% EYE DROP 1 DROP DROPS OD SCH ×4 (10:08→21:13)
[2020-09-14] MEDS: prednisoLONE ACETATE 1% OPHTH SUSP 5 ML BOTTLE OD SCH ×4 (10:08→21:12)
[2020-09-14] MEDS: MIRTAZAPINE 15 MG TABLET (FP) PO SCH (21:07)
[2020-09-14] MEDS: MELATONIN 5 MG TABLETS PO SCH (21:09)
[2020-09-14] MEDS: THIAMINE HCL 100 MG TABLET (FP) PO SCH (21:09)
[2020-09-15] MEDS: metFORMIN HCL 500 MG TABLET (FP) PO SCH ×2 (06:42→16:34)
[2020-09-15] MEDS: sitaGLIPtin PHOSPHATE 50 MG TABLET PO SCH (06:42)
[2020-09-15] MEDS: INSULIN SLIDING SCALE (NOVOLOG) 1 VIAL SQ SCH ×4 (06:42→21:14)
[2020-09-15] MEDS: FERROUS SO4 325 MG TABLET (FP) PO SCH ×3 (06:42→21:12)
[2020-09-15] MEDS: TAMSULOSIN HCL 0.4 MG CAP PO SCH (07:39)
[2020-09-15] MEDS: PRENATAL VITAMINS W/ FOLIC ACID TABLET (FP) PO SCH (09:19)
[2020-09-15] MEDS: NICOTINE 7 MG/24 HOURS TOPICAL PATCH TD SCH (09:19)
[2020-09-15] MEDS: prednisoLONE ACETATE 1% OPHTH SUSP 5 ML BOTTLE OD SCH ×4 (09:19→21:15)
[2020-09-15] MEDS: TICAGRELOR 90 MG TABLET PO SCH ×2 (09:20→21:12)
[2020-09-15] MEDS: SERTRALINE HCL 50 MG TABLET (FP) PO SCH (09:20)
[2020-09-15] MEDS: ASPIRIN 81 MG CHEWABLE TABLETS PO SCH (09:20)
[2020-09-15] MEDS: ISOSORBIDE MONONITRATE 60 MG TAB.SR.24H (FP) PO SCH (09:21)
[2020-09-15] MEDS: KETOROLAC TROMETHAMINE 0.5% EYE DROP 1 DROP DROPS OD SCH ×4 (09:21→21:14)
[2020-09-15] MEDS: LOSARTAN POTASSIUM 50 MG TABLET PO SCH (09:21)
[2020-09-15] MEDS: OMEGA-3 ACID ETHYL ESTERS (FATTY-ACIDS) 1 GM CAPSULE (FP) PO SCH (09:22)
[2020-09-15] MEDS: RANOLAZINE E.R. 500 MG TABLET (FP) PO SCH ×2 (09:23→21:12)
[2020-09-15] MEDS: PANTOPRAZOLE 40 MG TABLET PO SCH (09:23)
[2020-09-15] MEDS: TIOTROPIUM BROMIDE 2.5 MCG (SPIRIVA) RESPIMAT INHALER IH SCH (09:23)
[2020-09-15] MEDS: EZETIMIBE 10 MG TABLET (FP) PO SCH (09:24)
[2020-09-15] MEDS: NIFEdipine E.R. 30 MG TABLET PO SCH (09:25)
[2020-09-15] MEDS: FOLIC ACID 1 MG TABLET (FP) PO SCH (09:26)
[2020-09-15] MEDS ORDERED: PT OWN MED DRAWER 7, Y5N ONE ×2 (09:28→18:44)
[2020-09-15] MEDS: metoPROLOL SUCCINATE 25 MG TAB.SR.24H (FP) PO SCH (09:37)
[2020-09-15] MEDS: THIAMINE HCL 100 MG TABLET (FP) PO SCH (21:11)
[2020-09-15] MEDS: MIRTAZAPINE 15 MG TABLET (FP) PO SCH (21:11)
[2020-09-15] MEDS: SUVOREXANT 5 MG TABLET PO PRN (21:14)
[2020-09-16] MEDS ORDERED: PT OWN MED DRAWER 7, Y5N ONE ×4 (03:45→18:31)
[2020-09-16] MEDS: sitaGLIPtin PHOSPHATE 50 MG TABLET PO SCH (06:50)
[2020-09-16] MEDS: metFORMIN HCL 500 MG TABLET (FP) PO SCH ×2 (06:50→16:27)
[2020-09-16] MEDS: FERROUS SO4 325 MG TABLET (FP) PO SCH ×3 (06:50→21:02)
[2020-09-16] MEDS: INSULIN SLIDING SCALE (NOVOLOG) 1 VIAL SQ SCH ×4 (07:09→21:07)
[2020-09-16] MEDS: TAMSULOSIN HCL 0.4 MG CAP PO SCH (07:48)
[2020-09-16] MEDS: ASPIRIN 81 MG CHEWABLE TABLETS PO SCH (09:44)
[2020-09-16] MEDS: FOLIC ACID 1 MG TABLET (FP) PO SCH (09:46)
[2020-09-16] MEDS: KETOROLAC TROMETHAMINE 0.5% EYE DROP 1 DROP DROPS OD SCH ×4 (09:46→21:07)
[2020-09-16] MEDS: NICOTINE 7 MG/24 HOURS TOPICAL PATCH TD SCH (09:47)
[2020-09-16] MEDS: OMEGA-3 ACID ETHYL ESTERS (FATTY-ACIDS) 1 GM CAPSULE (FP) PO SCH (09:47)
[2020-09-16] MEDS: ISOSORBIDE MONONITRATE 60 MG TAB.SR.24H (FP) PO SCH (09:47)
[2020-09-16] MEDS: prednisoLONE ACETATE 1% OPHTH SUSP 5 ML BOTTLE OD SCH ×4 (09:48→21:07)
[2020-09-16] MEDS: PRENATAL VITAMINS W/ FOLIC ACID TABLET (FP) PO SCH (09:48)
[2020-09-16] MEDS: NIFEdipine E.R. 30 MG TABLET PO SCH (09:49)
[2020-09-16] MEDS: PANTOPRAZOLE 40 MG TABLET PO SCH (09:49)
[2020-09-16] MEDS: RANOLAZINE E.R. 500 MG TABLET (FP) PO SCH ×2 (09:50→21:03)
[2020-09-16] MEDS: TIOTROPIUM BROMIDE 2.5 MCG (SPIRIVA) RESPIMAT INHALER IH SCH (09:50)
[2020-09-16] MEDS: SERTRALINE HCL 50 MG TABLET (FP) PO SCH (09:51)
[2020-09-16] MEDS: EZETIMIBE 10 MG TABLET (FP) PO SCH (09:51)
[2020-09-16] MEDS: LOSARTAN POTASSIUM 50 MG TABLET PO SCH (09:53)
[2020-09-16] MEDS: metoPROLOL SUCCINATE 25 MG TAB.SR.24H (FP) PO SCH (09:54)
[2020-09-16] MEDS: TICAGRELOR 90 MG TABLET PO SCH ×2 (09:56→21:03)
[2020-09-16] MEDS ORDERED: ALBUTEROL SO4 0.083% IH SOL 2.5 MG/3 ML VIAL.NEB. NEB PRN ×2 (10:21→13:04)
[2020-09-16] MEDS ORDERED: ALBUTEROL SO4 HFA INHALER IH PRN (10:29)
[2020-09-16] MEDS ORDERED: metoPROLOL SUCCINATE 25 MG TAB.SR.24H (FP) PO ONE (12:12)
[2020-09-16] MEDS ORDERED: LOSARTAN POTASSIUM 50 MG TABLET PO ONE (12:13)
[2020-09-16] MEDS: THIAMINE HCL 100 MG TABLET (FP) PO SCH (21:03)
[2020-09-16] MEDS: MIRTAZAPINE 15 MG TABLET (FP) PO SCH (21:03)
[2020-09-16] MEDS: SUVOREXANT 5 MG TABLET PO PRN (21:05)
[2020-09-17] MEDS ORDERED: PT OWN MED DRAWER 7, Y5N ONE ×3 (03:37→08:57)
[2020-09-17] MEDS: FERROUS SO4 325 MG TABLET (FP) PO SCH ×3 (06:17→21:04)
[2020-09-17] MEDS: INSULIN SLIDING SCALE (NOVOLOG) 1 VIAL SQ SCH ×4 (06:19→21:06)
[2020-09-17] MEDS: metFORMIN HCL 500 MG TABLET (FP) PO SCH ×2 (06:19→16:27)
[2020-09-17] MEDS: sitaGLIPtin PHOSPHATE 50 MG TABLET PO SCH (06:19)
[2020-09-17] MEDS: TAMSULOSIN HCL 0.4 MG CAP PO SCH (07:55)
[2020-09-17] MEDS: OMEGA-3 ACID ETHYL ESTERS (FATTY-ACIDS) 1 GM CAPSULE (FP) PO SCH (09:50)
[2020-09-17] MEDS: NIFEdipine E.R. 30 MG TABLET PO SCH (09:50)
[2020-09-17] MEDS: NICOTINE 7 MG/24 HOURS TOPICAL PATCH TD SCH (09:50)
[2020-09-17] MEDS: RANOLAZINE E.R. 500 MG TABLET (FP) PO SCH ×2 (09:50→21:05)
[2020-09-17] MEDS: LOSARTAN POTASSIUM 50 MG TABLET PO SCH (09:51)
[2020-09-17] MEDS: ASPIRIN 81 MG CHEWABLE TABLETS PO SCH (09:51)
[2020-09-17] MEDS: SERTRALINE HCL 50 MG TABLET (FP) PO SCH (09:51)
[2020-09-17] MEDS: TICAGRELOR 90 MG TABLET PO SCH ×2 (09:52→21:05)
[2020-09-17] MEDS: EZETIMIBE 10 MG TABLET (FP) PO SCH (09:52)
[2020-09-17] MEDS: PANTOPRAZOLE 40 MG TABLET PO SCH (09:52)
[2020-09-17] MEDS: FOLIC ACID 1 MG TABLET (FP) PO SCH (09:52)
[2020-09-17] MEDS: metoPROLOL SUCCINATE 25 MG TAB.SR.24H (FP) PO SCH (09:52)
[2020-09-17] MEDS: PRENATAL VITAMINS W/ FOLIC ACID TABLET (FP) PO SCH (09:52)
[2020-09-17] MEDS: ISOSORBIDE MONONITRATE 60 MG TAB.SR.24H (FP) PO SCH (09:53)
[2020-09-17] MEDS: prednisoLONE ACETATE 1% OPHTH SUSP 5 ML BOTTLE OD SCH ×4 (09:55→22:07)
[2020-09-17] MEDS: KETOROLAC TROMETHAMINE 0.5% EYE DROP 1 DROP DROPS OD SCH ×4 (09:55→22:07)
[2020-09-17] MEDS: TIOTROPIUM BROMIDE 2.5 MCG (SPIRIVA) RESPIMAT INHALER IH SCH (09:56)
[2020-09-17] MEDS: MIRTAZAPINE 15 MG TABLET (FP) PO SCH (21:04)
[2020-09-17] MEDS: THIAMINE HCL 100 MG TABLET (FP) PO SCH (21:05)
[2020-09-17] MEDS: SUVOREXANT 5 MG TABLET PO PRN (22:02)
[2020-09-17] MEDS: NICOTINE POLACRILEX 2 MG GUM BUC PRN (22:08)
[2020-09-18] MEDS: sitaGLIPtin PHOSPHATE 50 MG TABLET PO SCH (06:31)
[2020-09-18] MEDS: metFORMIN HCL 500 MG TABLET (FP) PO SCH ×2 (06:31→16:59)
[2020-09-18] MEDS: FERROUS SO4 325 MG TABLET (FP) PO SCH ×3 (06:32→21:03)
[2020-09-18] MEDS: NICOTINE POLACRILEX 2 MG GUM BUC PRN ×2 (06:33→10:20)
[2020-09-18] MEDS: INSULIN SLIDING SCALE (NOVOLOG) 1 VIAL SQ SCH ×4 (06:48→21:07)
[2020-09-18] MEDS: TAMSULOSIN HCL 0.4 MG CAP PO SCH (07:47)
[2020-09-18] MEDS ORDERED: PT OWN MED DRAWER 7, Y5N ONE ×4 (09:00→21:07)
[2020-09-18] MEDS: SERTRALINE HCL 50 MG TABLET (FP) PO SCH (10:14)
[2020-09-18] MEDS: EZETIMIBE 10 MG TABLET (FP) PO SCH (10:14)
[2020-09-18] MEDS: ASPIRIN 81 MG CHEWABLE TABLETS PO SCH (10:14)
[2020-09-18] MEDS: NICOTINE 7 MG/24 HOURS TOPICAL PATCH TD SCH (10:14)
[2020-09-18] MEDS: metoPROLOL SUCCINATE 25 MG TAB.SR.24H (FP) PO SCH (10:14)
[2020-09-18] MEDS: FOLIC ACID 1 MG TABLET (FP) PO SCH (10:15)
[2020-09-18] MEDS: NIFEdipine E.R. 30 MG TABLET PO SCH (10:15)
[2020-09-18] MEDS: LOSARTAN POTASSIUM 50 MG TABLET PO SCH (10:15)
[2020-09-18] MEDS: ISOSORBIDE MONONITRATE 60 MG TAB.SR.24H (FP) PO SCH (10:15)
[2020-09-18] MEDS: OMEGA-3 ACID ETHYL ESTERS (FATTY-ACIDS) 1 GM CAPSULE (FP) PO SCH (10:15)
[2020-09-18] MEDS: RANOLAZINE E.R. 500 MG TABLET (FP) PO SCH ×2 (10:16→21:02)
[2020-09-18] MEDS: TICAGRELOR 90 MG TABLET PO SCH ×2 (10:16→21:03)
[2020-09-18] MEDS: PANTOPRAZOLE 40 MG TABLET PO SCH (10:16)
[2020-09-18] MEDS: PRENATAL VITAMINS W/ FOLIC ACID TABLET (FP) PO SCH (10:16)
[2020-09-18] MEDS: prednisoLONE ACETATE 1% OPHTH SUSP 5 ML BOTTLE OD SCH ×4 (10:19→21:03)
[2020-09-18] MEDS: TIOTROPIUM BROMIDE 2.5 MCG (SPIRIVA) RESPIMAT INHALER IH SCH (10:19)
[2020-09-18] MEDS: KETOROLAC TROMETHAMINE 0.5% EYE DROP 1 DROP DROPS OD SCH ×4 (10:19→21:03)
[2020-09-18] MEDS: MINERAL OIL/PETROLAT/WATER TOPICAL CREAM 113 GM JAR TP SCH (16:00)
[2020-09-18] MEDS: SUVOREXANT 5 MG TABLET PO PRN (21:01)
[2020-09-18] MEDS: MIRTAZAPINE 15 MG TABLET (FP) PO SCH (21:03)
[2020-09-18] MEDS: THIAMINE HCL 100 MG TABLET (FP) PO SCH (21:03)
[2020-09-18] MEDS: TOLNAFTATE 1% CREAM 15 GM TUBE TP SCH (23:14)
[2020-09-19] MEDS: sitaGLIPtin PHOSPHATE 50 MG TABLET PO SCH (06:22)
[2020-09-19] MEDS: FERROUS SO4 325 MG TABLET (FP) PO SCH ×3 (06:22→21:30)
[2020-09-19] MEDS: NICOTINE POLACRILEX 2 MG GUM BUC PRN ×2 (06:22→12:05)
[2020-09-19] MEDS: INSULIN SLIDING SCALE (NOVOLOG) 1 VIAL SQ SCH ×4 (06:22→21:33)
[2020-09-19] MEDS: metFORMIN HCL 500 MG TABLET (FP) PO SCH ×2 (06:22→16:33)
[2020-09-19] MEDS: TAMSULOSIN HCL 0.4 MG CAP PO SCH (07:31)
[2020-09-19] MEDS ORDERED: PT OWN MED DRAWER 7, Y5N ONE ×2 (09:04→19:37)
[2020-09-19] MEDS: OMEGA-3 ACID ETHYL ESTERS (FATTY-ACIDS) 1 GM CAPSULE (FP) PO SCH (09:10)
[2020-09-19] MEDS: SERTRALINE HCL 50 MG TABLET (FP) PO SCH (09:10)
[2020-09-19] MEDS: TICAGRELOR 90 MG TABLET PO SCH ×2 (09:10→21:31)
[2020-09-19] MEDS: PRENATAL VITAMINS W/ FOLIC ACID TABLET (FP) PO SCH (09:10)
[2020-09-19] MEDS: ASPIRIN 81 MG CHEWABLE TABLETS PO SCH (09:10)
[2020-09-19] MEDS: prednisoLONE ACETATE 1% OPHTH SUSP 5 ML BOTTLE OD SCH ×4 (09:11→21:33)
[2020-09-19] MEDS: NICOTINE 7 MG/24 HOURS TOPICAL PATCH TD SCH (09:11)
[2020-09-19] MEDS: PANTOPRAZOLE 40 MG TABLET PO SCH (09:11)
[2020-09-19] MEDS: EZETIMIBE 10 MG TABLET (FP) PO SCH (09:11)
[2020-09-19] MEDS: TIOTROPIUM BROMIDE 2.5 MCG (SPIRIVA) RESPIMAT INHALER IH SCH (09:12)
[2020-09-19] MEDS: RANOLAZINE E.R. 500 MG TABLET (FP) PO SCH ×2 (09:12→21:30)
[2020-09-19] MEDS: KETOROLAC TROMETHAMINE 0.5% EYE DROP 1 DROP DROPS OD SCH ×4 (09:12→21:33)
[2020-09-19] MEDS: FOLIC ACID 1 MG TABLET (FP) PO SCH (09:13)
[2020-09-19] MEDS: MINERAL OIL/PETROLAT/WATER TOPICAL CREAM 113 GM JAR TP SCH (09:13)
[2020-09-19] MEDS: TOLNAFTATE 1% CREAM 15 GM TUBE TP SCH ×2 (09:14→21:54)
[2020-09-19] MEDS: ISOSORBIDE MONONITRATE 60 MG TAB.SR.24H (FP) PO SCH (10:18)
[2020-09-19] MEDS: NIFEdipine E.R. 30 MG TABLET PO SCH (10:18)
[2020-09-19] MEDS: metoPROLOL SUCCINATE 25 MG TAB.SR.24H (FP) PO SCH (10:18)
[2020-09-19] MEDS: LOSARTAN POTASSIUM 50 MG TABLET PO SCH (10:18)
[2020-09-19] MEDS: MIRTAZAPINE 15 MG TABLET (FP) PO SCH (21:30)
[2020-09-19] MEDS: THIAMINE HCL 100 MG TABLET (FP) PO SCH (21:30)
[2020-09-20] MEDS ORDERED: PT OWN MED DRAWER 7, Y5N ONE ×2 (03:18→09:22)
[2020-09-20] MEDS: FERROUS SO4 325 MG TABLET (FP) PO SCH ×3 (06:27→21:18)
[2020-09-20] MEDS: NICOTINE POLACRILEX 2 MG GUM BUC PRN (06:29)
[2020-09-20] MEDS: metFORMIN HCL 500 MG TABLET (FP) PO SCH ×2 (06:29→16:37)
[2020-09-20] MEDS: sitaGLIPtin PHOSPHATE 50 MG TABLET PO SCH (06:29)
[2020-09-20] MEDS: INSULIN SLIDING SCALE (NOVOLOG) 1 VIAL SQ SCH ×4 (06:29→21:20)
[2020-09-20] MEDS: TAMSULOSIN HCL 0.4 MG CAP PO SCH (07:50)
[2020-09-20] MEDS: PRENATAL VITAMINS W/ FOLIC ACID TABLET (FP) PO SCH (10:20)
[2020-09-20] MEDS: NIFEdipine E.R. 30 MG TABLET PO SCH (10:20)
[2020-09-20] MEDS: ISOSORBIDE MONONITRATE 60 MG TAB.SR.24H (FP) PO SCH (10:20)
[2020-09-20] MEDS: metoPROLOL SUCCINATE 25 MG TAB.SR.24H (FP) PO SCH (10:20)
[2020-09-20] MEDS: TICAGRELOR 90 MG TABLET PO SCH ×2 (10:20→21:18)
[2020-09-20] MEDS: ASPIRIN 81 MG CHEWABLE TABLETS PO SCH (10:21)
[2020-09-20] MEDS: PANTOPRAZOLE 40 MG TABLET PO SCH (10:21)
[2020-09-20] MEDS: SERTRALINE HCL 50 MG TABLET (FP) PO SCH (10:21)
[2020-09-20] MEDS: OMEGA-3 ACID ETHYL ESTERS (FATTY-ACIDS) 1 GM CAPSULE (FP) PO SCH (10:21)
[2020-09-20] MEDS: FOLIC ACID 1 MG TABLET (FP) PO SCH (10:22)
[2020-09-20] MEDS: TIOTROPIUM BROMIDE 2.5 MCG (SPIRIVA) RESPIMAT INHALER IH SCH (10:23)
[2020-09-20] MEDS: prednisoLONE ACETATE 1% OPHTH SUSP 5 ML BOTTLE OD SCH ×4 (10:23→21:18)
[2020-09-20] MEDS: EZETIMIBE 10 MG TABLET (FP) PO SCH (10:23)
[2020-09-20] MEDS: RANOLAZINE E.R. 500 MG TABLET (FP) PO SCH ×2 (10:23→21:18)
[2020-09-20] MEDS: KETOROLAC TROMETHAMINE 0.5% EYE DROP 1 DROP DROPS OD SCH ×4 (10:24→21:18)
[2020-09-20] MEDS: NICOTINE 7 MG/24 HOURS TOPICAL PATCH TD SCH (10:24)
[2020-09-20] MEDS: MINERAL OIL/PETROLAT/WATER TOPICAL CREAM 113 GM JAR TP SCH (10:25)
[2020-09-20] MEDS: LOSARTAN POTASSIUM 50 MG TABLET PO SCH (10:25)
[2020-09-20] MEDS: TOLNAFTATE 1% CREAM 15 GM TUBE TP SCH ×2 (10:25→21:18)
[2020-09-20] MEDS: MIRTAZAPINE 15 MG TABLET (FP) PO SCH (21:18)
[2020-09-20] MEDS: THIAMINE HCL 100 MG TABLET (FP) PO SCH (21:18)
[2020-09-21] MEDS: FERROUS SO4 325 MG TABLET (FP) PO SCH ×3 (06:19→21:13)
[2020-09-21] MEDS: sitaGLIPtin PHOSPHATE 50 MG TABLET PO SCH (06:20)
[2020-09-21] MEDS: INSULIN SLIDING SCALE (NOVOLOG) 1 VIAL SQ SCH ×4 (06:20→21:15)
[2020-09-21] MEDS: metFORMIN HCL 500 MG TABLET (FP) PO SCH ×2 (06:20→16:31)
[2020-09-21] MEDS: NICOTINE POLACRILEX 2 MG GUM BUC PRN (06:21)
[2020-09-21] MEDS: TAMSULOSIN HCL 0.4 MG CAP PO SCH (07:42)
[2020-09-21] MEDS ORDERED: PT OWN MED DRAWER 7, Y5N ONE ×3 (08:41→18:27)
[2020-09-21] MEDS: TIOTROPIUM BROMIDE 2.5 MCG (SPIRIVA) RESPIMAT INHALER IH SCH (10:04)
[2020-09-21] MEDS: EZETIMIBE 10 MG TABLET (FP) PO SCH (10:05)
[2020-09-21] MEDS: ISOSORBIDE MONONITRATE 60 MG TAB.SR.24H (FP) PO SCH (10:05)
[2020-09-21] MEDS: metoPROLOL SUCCINATE 25 MG TAB.SR.24H (FP) PO SCH (10:05)
[2020-09-21] MEDS: OMEGA-3 ACID ETHYL ESTERS (FATTY-ACIDS) 1 GM CAPSULE (FP) PO SCH (10:05)
[2020-09-21] MEDS: SERTRALINE HCL 50 MG TABLET (FP) PO SCH (10:05)
[2020-09-21] MEDS: ASPIRIN 81 MG CHEWABLE TABLETS PO SCH (10:05)
[2020-09-21] MEDS: PRENATAL VITAMINS W/ FOLIC ACID TABLET (FP) PO SCH (10:05)
[2020-09-21] MEDS: TOLNAFTATE 1% CREAM 15 GM TUBE TP SCH ×2 (10:06→21:15)
[2020-09-21] MEDS: RANOLAZINE E.R. 500 MG TABLET (FP) PO SCH ×2 (10:06→21:13)
[2020-09-21] MEDS: NIFEdipine E.R. 30 MG TABLET PO SCH (10:06)
[2020-09-21] MEDS: PANTOPRAZOLE 40 MG TABLET PO SCH (10:06)
[2020-09-21] MEDS: TICAGRELOR 90 MG TABLET PO SCH ×2 (10:06→21:13)
[2020-09-21] MEDS: FOLIC ACID 1 MG TABLET (FP) PO SCH (10:06)
[2020-09-21] MEDS: NICOTINE 7 MG/24 HOURS TOPICAL PATCH TD SCH (10:07)
[2020-09-21] MEDS: KETOROLAC TROMETHAMINE 0.5% EYE DROP 1 DROP DROPS OD SCH ×4 (10:10→21:14)
[2020-09-21] MEDS: prednisoLONE ACETATE 1% OPHTH SUSP 5 ML BOTTLE OD SCH ×4 (10:10→21:14)
[2020-09-21] MEDS: LOSARTAN POTASSIUM 50 MG TABLET PO SCH (10:33)
[2020-09-21] MEDS: MINERAL OIL/PETROLAT/WATER TOPICAL CREAM 113 GM JAR TP SCH (10:33)
[2020-09-21] MEDS: MIRTAZAPINE 15 MG TABLET (FP) PO SCH (21:13)
[2020-09-21] MEDS: THIAMINE HCL 100 MG TABLET (FP) PO SCH (21:14)
[2020-09-22] MEDS ORDERED: PT OWN MED DRAWER 7, Y5N ONE ×2 (03:55→09:35)
[2020-09-22] MEDS: FERROUS SO4 325 MG TABLET (FP) PO SCH (06:33)
[2020-09-22] MEDS: sitaGLIPtin PHOSPHATE 50 MG TABLET PO SCH (06:33)
[2020-09-22] MEDS: metFORMIN HCL 500 MG TABLET (FP) PO SCH (06:33)
[2020-09-22 07:02] VITALS: BP 154/74; PULSE 83; TEMP 97.9
[2020-09-22] MEDS: TAMSULOSIN HCL 0.4 MG CAP PO SCH (08:02)
[2020-09-22] MEDS: INSULIN SLIDING SCALE (NOVOLOG) 1 VIAL SQ SCH (08:02)
[2020-09-22] MEDS: OMEGA-3 ACID ETHYL ESTERS (FATTY-ACIDS) 1 GM CAPSULE (FP) PO SCH (09:36)
[2020-09-22] MEDS: ASPIRIN 81 MG CHEWABLE TABLETS PO SCH (09:36)
[2020-09-22] MEDS: ISOSORBIDE MONONITRATE 60 MG TAB.SR.24H (FP) PO SCH (09:36)
[2020-09-22] MEDS: PANTOPRAZOLE 40 MG TABLET PO SCH (09:36)
[2020-09-22] MEDS: NIFEdipine E.R. 30 MG TABLET PO SCH (09:37)
[2020-09-22] MEDS: metoPROLOL SUCCINATE 25 MG TAB.SR.24H (FP) PO SCH (09:37)
[2020-09-22] MEDS: PRENATAL VITAMINS W/ FOLIC ACID TABLET (FP) PO SCH (09:37)
[2020-09-22] MEDS: TIOTROPIUM BROMIDE 2.5 MCG (SPIRIVA) RESPIMAT INHALER IH SCH (09:54)
[2020-09-22] MEDS: LOSARTAN POTASSIUM 50 MG TABLET PO SCH (09:54)
[2020-09-22] MEDS: MINERAL OIL/PETROLAT/WATER TOPICAL CREAM 113 GM JAR TP SCH (09:54)
[2020-09-22] MEDS: TOLNAFTATE 1% CREAM 15 GM TUBE TP SCH (09:54)
[2020-09-22] MEDS: KETOROLAC TROMETHAMINE 0.5% EYE DROP 1 DROP DROPS OD SCH (09:54)
[2020-09-22] MEDS: prednisoLONE ACETATE 1% OPHTH SUSP 5 ML BOTTLE OD SCH (09:54)
[2020-09-22] MEDS: NICOTINE 7 MG/24 HOURS TOPICAL PATCH TD SCH (09:54)
[2020-09-22] MEDS: RANOLAZINE E.R. 500 MG TABLET (FP) PO SCH (11:08)
[2020-09-22] MEDS: EZETIMIBE 10 MG TABLET (FP) PO SCH (11:08)
[2020-09-22] MEDS: FOLIC ACID 1 MG TABLET (FP) PO SCH (11:08)
[2020-09-22] MEDS: TICAGRELOR 90 MG TABLET PO SCH (11:08)
== END 2020-09-22 11:10 | disposition home or self-care (01) | DRG 895 ==
LOC: YASAS 16:31 → Y3W 17:40
PROVIDERS: ADMIT Allergy & Immunology; ATTEND Allergy & Immunology
PROC: HZ42ZZZ Group Counseling for Substance Abuse Treatment, Cognitive-Behavioral (ICD-10-PCS; principal; 2020-09-09)
DX: F10.20 Alcohol dependence, uncomplicated (principal); F33.9 Major depressive disorder, recurrent, unspecified; F17.210 Nicotine dependence, cigarettes, uncomplicated; F10.282 Alcohol dependence with alcohol-induced sleep disorder; F10.24 Alcohol dependence with alcohol-induced mood disorder; D50.9 Iron deficiency anemia, unspecified; E87.5 Hyperkalemia; E11.9 Type 2 diabetes mellitus without complications; Z79.4 Long term (current) use of insulin; I25.10 Atherosclerotic heart disease of native coronary artery without angina pectoris; I10 Essential (primary) hypertension; G47.00 Insomnia, unspecified; J44.9 Chronic obstructive pulmonary disease, unspecified; K21.9 Gastro-esophageal reflux disease without esophagitis; N40.0 Benign prostatic hyperplasia without lower urinary tract symptoms; L85.3 Xerosis cutis; B35.3 Tinea pedis; R60.0 Localized edema; M21.371 Foot drop, right foot; I69.898 Other sequelae of other cerebrovascular disease; Z95.1 Presence of aortocoronary bypass graft; Z95.5 Presence of coronary angioplasty implant and graft; Z88.1 Allergy status to other antibiotic agents; Z88.8 Allergy status to other drugs, medicaments and biological substances; Z99.89 Dependence on other enabling machines and devices; Z98.890 Other specified postprocedural states
CPT/HCPCS: 36415; 80053; 82962; 84132; 85027; C9803; U0003

== ENCOUNTER 2021-03-12 18:34 | Observation (INO) | payer OTHER ==
[2021-03-12 19:54] LABS: BASO % 1.3 % (0-2.0); EOS % 1.5 % (0-4.5); HEMOGLOBIN 11.3 GM/dL (11.7-16.9); LYMPH % 34.8 % (8-40); MCH 28.7 pg (25.7-33.7); MCHC 33.2 g/dl (32.0-35.9); MEAN CELL VOLUME 86.5 fl (80-96); MEAN PLT VOLUME 9.5 fl (7.5-11.1); MONO % 5.3 % (3.8-10.2); NEUT % 57.1 % (42.8-82.8); PLATELET COUNT 205 10^3/uL (134-434); RBC 3.93 M/mm3 (4.00-5.60); RDW 14.8 % (11.9-15.9); WHITE BLOOD COUNT 11.7 K/mm3 (4.0-10.0)
[2021-03-12 20:12] LABS: CHLORIDE 104 mmol/L (98-107); SODIUM 132 mmol/L (136-145)
[2021-03-12 20:14] LABS: CALCIUM 8.6 mg/dL (8.5-10.1)
[2021-03-12 20:15] LABS: ALBUMIN 3.3 g/dl (3.4-5.0); BLOOD UREA NITROGEN 13.8 mg/dL (7-18); CO2 17 mmol/L (21-32); GLUCOSE,RANDOM 214 mg/dL (74-106); MAGNESIUM 1.4 mg/dL (1.8-2.4)
[2021-03-12 20:18] LABS: CREATININE 1.5 mg/dL (0.55-1.3); SGOT/AST 62 U/L (15-37); SGPT/ALT 23 U/L (13-61)
[2021-03-12] MEDS ORDERED: ASPIRIN 81 MG CHEWABLE TABLETS PO ONE (20:18)
[2021-03-12 20:19] LABS: BILIRUBIN,TOTAL 0.3 mg/dL (0.2-1); TOT PROT 7.5 g/dl (6.4-8.2)
[2021-03-12] MEDS ORDERED: FOLIC ACID INJECTION - 1 MG, THIAMINE HCL 100 MG, MULTIVIT INJECTION ADULT 10 ML in SOD... IVPB ONE (20:19)
[2021-03-12] MEDS ORDERED: MAGNESIUM SULF 50% (8.12 MEQ/2 ML-1 GM VIAL) IVPB ONE (20:19)
[2021-03-12 20:21] LABS: ALK PHOS 89 U/L (45-117)
[2021-03-12 20:31] LABS: ANION GAP 11 MMOL/L (8-16)
[2021-03-12] MEDS ORDERED: MAGNESIUM SULFATE IN WATER 2 GM/50 ML IVPB IVPB ONE (20:31)
[2021-03-12] MEDS ORDERED: ASPIRIN 81 MG CHEWABLE TABLETS ONE (20:31)
[2021-03-12 21:24] LABS: CALCIUM 8.7 mg/dL (8.5-10.1)
[2021-03-12 21:25] LABS: BLOOD UREA NITROGEN 13.5 mg/dL (7-18)
[2021-03-12 21:28] LABS: CREATININE 1.4 mg/dL (0.55-1.3)
[2021-03-13] MEDS ORDERED: ALBUTEROL SO4 HFA INHALER IH PRN (04:03)
[2021-03-13 05:01] VITALS: BMI 26.9
[2021-03-13 07:20] LABS: BASO % 0.4 % (0-2.0); EOS % 2.2 % (0-4.5); HEMATOCRIT 34.4 % (35.4-49); HEMOGLOBIN 11.6 GM/dL (11.7-16.9); LYMPH % 27.5 % (8-40); MCH 29.2 pg (25.7-33.7); MCHC 33.6 g/dl (32.0-35.9); MEAN CELL VOLUME 86.8 fl (80-96); MEAN PLT VOLUME 9.5 fl (7.5-11.1); NEUT % 63.9 % (42.8-82.8); PLATELET COUNT 176 10^3/uL (134-434); RBC 3.97 M/mm3 (4.00-5.60); RDW 14.8 % (11.9-15.9); WHITE BLOOD COUNT 8.1 K/mm3 (4.0-10.0)
[2021-03-13 07:38] LABS: CHLORIDE 111 mmol/L (98-107); SODIUM 140 mmol/L (136-145)
[2021-03-13 07:41] LABS: CALCIUM 8.2 mg/dL (8.5-10.1)
[2021-03-13 07:42] LABS: ANION GAP 9 MMOL/L (8-16); BLOOD UREA NITROGEN 13.8 mg/dL (7-18); CO2 20 mmol/L (21-32); GLUCOSE,RANDOM 180 mg/dL (74-106); MAGNESIUM 1.7 mg/dL (1.8-2.4)
[2021-03-13 07:45] LABS: CHOLESTEROL 91 mg/dL (50-200); CREATININE 1.3 mg/dL (0.55-1.3); PHOSPHOROUS 3.5 mg/dL (2.5-4.9); SGOT/AST 15 U/L (15-37); SGPT/ALT 20 U/L (13-61); TRIGLYCERIDES 297 mg/dL (0-150)
[2021-03-13 07:46] LABS: BILIRUBIN,TOTAL 0.2 mg/dL (0.2-1); LDL CHOLESTEROL (ONLY SJRH) 36 mg/dL (5-100); TOT PROT 6.4 g/dl (6.4-8.2)
[2021-03-13 07:47] LABS: ALK PHOS 80 U/L (45-117); HDL CHOLESTEROL 28 mg/dL (40-60)
[2021-03-13] MEDS ORDERED: MAGNESIUM OXIDE 400 MG TABLET (FP) PO ONE (07:49)
[2021-03-13] MEDS ORDERED: SERTRALINE HCL 25 MG TABLET (FP) ONE (09:24)
[2021-03-13] MEDS ORDERED: SERTRALINE HCL 50 MG TABLET (FP) ONE (09:24)
[2021-03-13] MEDS ORDERED: SERTRALINE HCL 25 MG TABLET (FP) PO SCH (10:00)
[2021-03-13] MEDS: MORPHINE SULFATE 2 MG/ML VIAL IVPUSH PRN ×3 (10:04→23:36)
[2021-03-13] MEDS: TICAGRELOR 90 MG TABLET PO SCH ×2 (10:08→21:19)
[2021-03-13] MEDS: TAMSULOSIN HCL 0.4 MG CAP PO SCH (10:08)
[2021-03-13] MEDS: PANTOPRAZOLE 40 MG TABLET PO SCH (10:08)
[2021-03-13] MEDS: LISINOPRIL 5 MG TABLET PO SCH (10:08)
[2021-03-13] MEDS: ISOSORBIDE MONONITRATE 60 MG TAB.SR.24H (FP) PO SCH (10:08)
[2021-03-13] MEDS: amLODIPine BESYLATE 5 MG TABLET (FP) PO SCH (10:08)
[2021-03-13] MEDS: SERTRALINE HCL 100 MG, SERTRALINE HCL 25 MG PO SCH (10:08)
[2021-03-13] MEDS: ASPIRIN 81 MG CHEWABLE TABLETS PO SCH (10:08)
[2021-03-13] MEDS: RANOLAZINE E.R. 500 MG TABLET (FP) PO SCH ×2 (10:09→21:19)
[2021-03-13] MEDS: EZETIMIBE 10 MG TABLET (FP) PO SCH (10:09)
[2021-03-13] MEDS: NITROGLYCERIN SUBLINGUAL 1/150 0.4 MG TAB SL PRN ×4 (13:28→21:30)
[2021-03-13] MEDS: ATORVASTATIN CA 40 MG TABLET (FP) PO SCH (21:19)
[2021-03-14] MEDS ORDERED: MIRTAZAPINE 15 MG TABLET (FP) PO ONE (00:08)
[2021-03-14 08:12] LABS: BASO % 0.4 % (0-2.0); EOS % 1.9 % (0-4.5); HEMATOCRIT 36.5 % (35.4-49); HEMOGLOBIN 12.1 GM/dL (11.7-16.9); LYMPH % 23.2 % (8-40); MCHC 33.1 g/dl (32.0-35.9); MEAN CELL VOLUME 87.6 fl (80-96); MEAN PLT VOLUME 9.7 fl (7.5-11.1); MONO % 6.5 % (3.8-10.2); PLATELET COUNT 191 10^3/uL (134-434); RBC 4.17 M/mm3 (4.00-5.60); RDW 14.4 % (11.9-15.9); WHITE BLOOD COUNT 10.7 K/mm3 (4.0-10.0)
[2021-03-14 08:22] LABS: ALBUMIN 3.2 g/dl (3.4-5.0); CALCIUM 8.4 mg/dL (8.5-10.1)
[2021-03-14 08:23] LABS: MAGNESIUM 1.6 mg/dL (1.8-2.4)
[2021-03-14 08:26] LABS: CREATININE 1.3 mg/dL (0.55-1.3)
[2021-03-14 08:27] LABS: BILIRUBIN,TOTAL 0.4 mg/dL (0.2-1)
[2021-03-14] MEDS ORDERED: SERTRALINE HCL 50 MG TABLET (FP) ONE (08:46)
[2021-03-14] MEDS ORDERED: SERTRALINE HCL 25 MG TABLET (FP) ONE (08:47)
[2021-03-14] MEDS: ASPIRIN 81 MG CHEWABLE TABLETS PO SCH (10:00)
[2021-03-14] MEDS: SERTRALINE HCL 100 MG, SERTRALINE HCL 25 MG PO SCH (10:00)
[2021-03-14] MEDS: EZETIMIBE 10 MG TABLET (FP) PO SCH (10:01)
[2021-03-14] MEDS: TAMSULOSIN HCL 0.4 MG CAP PO SCH (10:01)
[2021-03-14] MEDS: PANTOPRAZOLE 40 MG TABLET PO SCH (10:01)
[2021-03-14] MEDS: amLODIPine BESYLATE 5 MG TABLET (FP) PO SCH (10:01)
[2021-03-14] MEDS: LISINOPRIL 5 MG TABLET PO SCH (10:02)
[2021-03-14] MEDS: RANOLAZINE E.R. 500 MG TABLET (FP) PO SCH ×2 (10:02→21:59)
[2021-03-14] MEDS: TICAGRELOR 90 MG TABLET PO SCH ×2 (10:02→21:59)
[2021-03-14] MEDS: ISOSORBIDE MONONITRATE 60 MG TAB.SR.24H (FP) PO SCH (10:02)
[2021-03-14] MEDS ORDERED: INSULIN SLIDING SCALE (NOVOLOG) 1 VIAL SQ SCH ×2 (11:00→16:30)
[2021-03-14] MEDS: INSULIN SLIDING SCALE (NOVOLOG) 1 VIAL SQ SCH ×3 (12:26→21:59)
[2021-03-14] MEDS ORDERED: PT OWN MED DRAWER 7, Y5N ONE (12:33)
[2021-03-14] MEDS: MORPHINE SULFATE 2 MG/ML VIAL IVPUSH PRN ×2 (13:25→21:28)
[2021-03-14] MEDS: METOPROLOL TARTRATE 50 MG TABLET (FP) PO SCH (21:58)
[2021-03-14] MEDS: ATORVASTATIN CA 40 MG TABLET (FP) PO SCH (21:59)
[2021-03-15] MEDS ORDERED: MELATONIN 5 MG TABLETS PO ONE ×2 (02:05→21:22)
[2021-03-15] MEDS: MORPHINE SULFATE 2 MG/ML VIAL IVPUSH PRN (05:28)
[2021-03-15] MEDS: INSULIN SLIDING SCALE (NOVOLOG) 1 VIAL SQ SCH ×4 (07:01→21:52)
[2021-03-15 07:03] LABS: BASO % 0.2 % (0-2.0); EOS % 1.9 % (0-4.5); HEMATOCRIT 36.8 % (35.4-49); HEMOGLOBIN 12.2 GM/dL (11.7-16.9); LYMPH % 22.5 % (8-40); MCH 28.3 pg (25.7-33.7); MEAN CELL VOLUME 85.7 fl (80-96); MEAN PLT VOLUME 9.7 fl (7.5-11.1); MONO % 7.6 % (3.8-10.2); NEUT % 67.8 % (42.8-82.8); PLATELET COUNT 194 10^3/uL (134-434); RDW 14.5 % (11.9-15.9); WHITE BLOOD COUNT 11.1 K/mm3 (4.0-10.0)
[2021-03-15 07:45] LABS: CALCIUM 8.5 mg/dL (8.5-10.1)
[2021-03-15 07:46] LABS: ALBUMIN 3.2 g/dl (3.4-5.0); BLOOD UREA NITROGEN 15.4 mg/dL (7-18); MAGNESIUM 1.7 mg/dL (1.8-2.4)
[2021-03-15 07:49] LABS: CREATININE 1.4 mg/dL (0.55-1.3)
[2021-03-15 07:50] LABS: BILIRUBIN,TOTAL 0.4 mg/dL (0.2-1); TOT PROT 7.1 g/dl (6.4-8.2)
[2021-03-15] MEDS ORDERED: SERTRALINE HCL 25 MG TABLET (FP) ONE (09:34)
[2021-03-15] MEDS ORDERED: SERTRALINE HCL 50 MG TABLET (FP) ONE (09:34)
[2021-03-15] MEDS: THIAMINE HCL 100 MG TABLET (FP) PO SCH (09:45)
[2021-03-15] MEDS: FOLIC ACID 1 MG TABLET (FP) PO SCH (09:45)
[2021-03-15] MEDS: METOPROLOL TARTRATE 50 MG TABLET (FP) PO SCH ×2 (09:45→21:51)
[2021-03-15] MEDS: RANOLAZINE E.R. 500 MG TABLET (FP) PO SCH ×2 (09:45→21:50)
[2021-03-15] MEDS: MULTIVITAMINS (DAILY MVI) TABLET (FP) PO SCH (09:45)
[2021-03-15] MEDS: LISINOPRIL 5 MG TABLET PO SCH (09:45)
[2021-03-15] MEDS: ISOSORBIDE MONONITRATE 60 MG TAB.SR.24H (FP) PO SCH (09:45)
[2021-03-15] MEDS: TAMSULOSIN HCL 0.4 MG CAP PO SCH (09:45)
[2021-03-15] MEDS: PANTOPRAZOLE 40 MG TABLET PO SCH (09:45)
[2021-03-15] MEDS: ASPIRIN 81 MG CHEWABLE TABLETS PO SCH (09:46)
[2021-03-15] MEDS: amLODIPine BESYLATE 5 MG TABLET (FP) PO SCH (09:46)
[2021-03-15] MEDS: EZETIMIBE 10 MG TABLET (FP) PO SCH (09:46)
[2021-03-15] MEDS: SERTRALINE HCL 100 MG, SERTRALINE HCL 25 MG PO SCH (09:46)
[2021-03-15] MEDS: TICAGRELOR 90 MG TABLET PO SCH ×2 (09:46→21:50)
[2021-03-15] MEDS ORDERED: morphine SO4 SUSTAINED ACTING 15 MG TABLET.SA PO SCH ×3 (10:00→22:00)
[2021-03-15] MEDS ORDERED: MAGNESIUM OXIDE 400 MG TABLET (FP) PO ONE (10:03)
[2021-03-15] MEDS: morphine SO4 SUSTAINED ACTING 30 MG TABLET.SA PO SCH ×2 (12:36→21:51)
[2021-03-15] MEDS: ATORVASTATIN CA 40 MG TABLET (FP) PO SCH (21:50)
[2021-03-16] MEDS: INSULIN SLIDING SCALE (NOVOLOG) 1 VIAL SQ SCH (06:04)
[2021-03-16 09:37] VITALS: BP 119/73; PULSE 65; TEMP 98.5
[2021-03-16] MEDS ORDERED: SERTRALINE HCL 50 MG TABLET (FP) ONE (09:40)
[2021-03-16] MEDS ORDERED: SERTRALINE HCL 25 MG TABLET (FP) ONE (09:40)
[2021-03-16] MEDS: SERTRALINE HCL 100 MG, SERTRALINE HCL 25 MG PO SCH (09:43)
[2021-03-16] MEDS: RANOLAZINE E.R. 500 MG TABLET (FP) PO SCH (09:43)
[2021-03-16] MEDS: morphine SO4 SUSTAINED ACTING 30 MG TABLET.SA PO SCH (09:45)
[2021-03-16] MEDS: TAMSULOSIN HCL 0.4 MG CAP PO SCH (09:46)
[2021-03-16] MEDS: PANTOPRAZOLE 40 MG TABLET PO SCH (09:46)
[2021-03-16] MEDS: ASPIRIN 81 MG CHEWABLE TABLETS PO SCH (09:46)
[2021-03-16] MEDS: FOLIC ACID 1 MG TABLET (FP) PO SCH (09:46)
[2021-03-16] MEDS: LISINOPRIL 5 MG TABLET PO SCH (09:46)
[2021-03-16] MEDS: ISOSORBIDE MONONITRATE 60 MG TAB.SR.24H (FP) PO SCH (09:46)
[2021-03-16] MEDS: METOPROLOL TARTRATE 50 MG TABLET (FP) PO SCH (09:46)
[2021-03-16] MEDS: MULTIVITAMINS (DAILY MVI) TABLET (FP) PO SCH (09:46)
[2021-03-16] MEDS: amLODIPine BESYLATE 5 MG TABLET (FP) PO SCH (09:46)
[2021-03-16] MEDS: TICAGRELOR 90 MG TABLET PO SCH (09:47)
[2021-03-16] MEDS: THIAMINE HCL 100 MG TABLET (FP) PO SCH (09:47)
[2021-03-16] MEDS: EZETIMIBE 10 MG TABLET (FP) PO SCH (09:47)
== END 2021-03-16 12:29 | disposition other institution (70) ==
LOC: JER 18:34 → INTOOBSV 03-13 00:02 → JERBED 03-13 00:02 → UNDOADMOB 03-13 00:02 → J4S 03-13 02:56 → JERBED 03-13 02:56 → J4S 03-13 10:04 → JERBED 03-13 10:04
PROVIDERS: ADMIT Internal Medicine; ATTEND Nurse Practitioner Acute Care
PROC: 3E033GC Introduction of Other Therapeutic Substance into Peripheral Vein, Percutaneous Approach (ICD-10-PCS; principal; 2021-03-13)
PROC: 3E013VG Introduction of Insulin into Subcutaneous Tissue, Percutaneous Approach (ICD-10-PCS; 2021-03-13)
PROC: 3E033NZ Introduction of Analgesics, Hypnotics, Sedatives into Peripheral Vein, Percutaneous Approach (ICD-10-PCS; 2021-03-13)
DX: I11.9 Hypertensive heart disease without heart failure (principal); F10.99 Alcohol use, unspecified with unspecified alcohol-induced disorder; Z88.8 Allergy status to other drugs, medicaments and biological substances; I45.10 Unspecified right bundle-branch block; I69.919 Unspecified symptoms and signs involving cognitive functions following unspecified cerebrovascular disease; J44.9 Chronic obstructive pulmonary disease, unspecified; F41.8 Other specified anxiety disorders; K21.9 Gastro-esophageal reflux disease without esophagitis; R60.0 Localized edema; Z95.5 Presence of coronary angioplasty implant and graft; Z95.1 Presence of aortocoronary bypass graft; E11.9 Type 2 diabetes mellitus without complications; N28.9 Disorder of kidney and ureter, unspecified; F17.210 Nicotine dependence, cigarettes, uncomplicated; I25.10 Atherosclerotic heart disease of native coronary artery without angina pectoris
CPT/HCPCS: 36415; 70450-TC; 71045-TC-FY; 72100-TC-FY; 72125-TC; 80048; 80053; 80061; 80307; 82550; 82553; 82962; 83721; 83735; 84100; 84132; 84436; 84443; 84484; 85025; 93005; 93010; 93306-TC; 96365; 96372; 96375; 96376; 99285-25; C9803; G0378; U0003; U0005

== ENCOUNTER 2021-03-16 12:53 | Inpatient (IN) | payer OTHER ==
[2021-03-16 16:30] VITALS: BMI 26.9
[2021-03-16] MEDS ORDERED: guaiFENesin 200 MG/10 ML 10 ML UNIT-DOSE CUPS PO PRN (23:35)
[2021-03-16] MEDS ORDERED: ACETAMINOPHEN 325 MG TABLET (FP) PO PRN (23:35)
[2021-03-16] MEDS ORDERED: MAGNESIUM HYDROX 2400MG/30ML ORAL SUSPENSION 30 ML CUP PO PRN (23:35)
[2021-03-16] MEDS ORDERED: P-EPHED 60MG/TRIPROLIDI 2.5MG TABLET PO PRN (23:35)
[2021-03-16] MEDS ORDERED: LOPERAMIDE HCL 2 MG CAPSULE PO PRN (23:35)
[2021-03-16] MEDS ORDERED: IBUPROFEN 400 MG TABLET (FP) PO PRN (23:35)
[2021-03-16] MEDS ORDERED: MAGNESIUM CITRATE 300 ML BOTTLE PO PRN (23:35)
[2021-03-17] MEDS: MELATONIN 5 MG TABLETS PO SCH ×2 (01:30→22:19)
[2021-03-17] MEDS: metFORMIN HCL 500 MG TABLET (FP) PO SCH ×2 (07:27→16:51)
[2021-03-17] MEDS ORDERED: PT OWN MED DRAWER 7, Y5N ONE ×3 (07:29→20:10)
[2021-03-17] MEDS: TAMSULOSIN HCL 0.4 MG CAP PO SCH (07:30)
[2021-03-17] MEDS: LISINOPRIL 5 MG TABLET PO SCH (09:57)
[2021-03-17] MEDS: sitaGLIPtin PHOSPHATE 50 MG TABLET PO SCH (09:57)
[2021-03-17] MEDS: ASPIRIN 81 MG CHEWABLE TABLETS PO SCH (09:57)
[2021-03-17] MEDS: PRENATAL VITAMINS W/ FOLIC ACID TABLET (FP) PO SCH (09:57)
[2021-03-17] MEDS: amLODIPine BESYLATE 5 MG TABLET (FP) PO SCH (09:57)
[2021-03-17] MEDS: PANTOPRAZOLE 40 MG TABLET PO SCH (09:57)
[2021-03-17] MEDS: METOPROLOL TARTRATE 50 MG TABLET (FP) PO SCH ×2 (09:58→23:47)
[2021-03-17] MEDS: RANOLAZINE E.R. 500 MG TABLET (FP) PO SCH ×2 (09:58→23:47)
[2021-03-17] MEDS: TICAGRELOR 90 MG TABLET PO SCH ×2 (09:58→23:47)
[2021-03-17] MEDS: ISOSORBIDE MONONITRATE 60 MG TAB.SR.24H (FP) PO SCH (09:58)
[2021-03-17] MEDS: EZETIMIBE 10 MG TABLET (FP) PO SCH (09:59)
[2021-03-17] MEDS ORDERED: amLODIPine BESYLATE 5 MG TABLET (FP) PO SCH (10:00)
[2021-03-17] MEDS ORDERED: ISOSORBIDE MONONITRATE 60 MG TAB.SR.24H (FP) PO SCH (10:00)
[2021-03-17] MEDS ORDERED: METOPROLOL TARTRATE 50 MG TABLET (FP) PO SCH (10:00)
[2021-03-17] MEDS ORDERED: LISINOPRIL 5 MG TABLET PO SCH (10:00)
[2021-03-17 13:20] LABS: HEMATOCRIT 32.6 % (35.4-49); HEMOGLOBIN 11.2 GM/dL (11.7-16.9); MCH 29.5 pg (25.7-33.7); MCHC 34.4 g/dl (32.0-35.9); MEAN CELL VOLUME 85.7 fl (80-96); MEAN PLT VOLUME 9.8 fl (7.5-11.1); PLATELET COUNT 183 10^3/uL (134-434); RBC 3.81 M/mm3 (4.00-5.60); RDW 14.3 % (11.9-15.9); WHITE BLOOD COUNT 9.7 K/mm3 (4.0-10.0)
[2021-03-17 13:24] LABS: BLOOD UREA NITROGEN 34.1 mg/dL (7-18); CALCIUM 8.1 mg/dL (8.5-10.1)
[2021-03-17 13:29] LABS: BILIRUBIN,TOTAL 0.5 mg/dL (0.2-1); TOT PROT 6.7 g/dl (6.4-8.2)
[2021-03-17] MEDS: THIAMINE HCL 100 MG TABLET (FP) PO SCH (22:20)
[2021-03-18] MEDS ORDERED: PT OWN MED DRAWER 7, Y5N ONE ×3 (03:25→08:45)
[2021-03-18] MEDS: metFORMIN HCL 500 MG TABLET (FP) PO SCH ×2 (07:40→18:03)
[2021-03-18] MEDS: sitaGLIPtin PHOSPHATE 50 MG TABLET PO SCH (07:40)
[2021-03-18] MEDS: TAMSULOSIN HCL 0.4 MG CAP PO SCH (07:40)
[2021-03-18] MEDS: ASPIRIN 81 MG CHEWABLE TABLETS PO SCH (09:30)
[2021-03-18] MEDS: TICAGRELOR 90 MG TABLET PO SCH (09:31)
[2021-03-18] MEDS: PRENATAL VITAMINS W/ FOLIC ACID TABLET (FP) PO SCH (09:38)
[2021-03-18] MEDS: amLODIPine BESYLATE 5 MG TABLET (FP) PO SCH (09:38)
[2021-03-18] MEDS: METOPROLOL TARTRATE 50 MG TABLET (FP) PO SCH (09:38)
[2021-03-18] MEDS: ISOSORBIDE MONONITRATE 60 MG TAB.SR.24H (FP) PO SCH (09:38)
[2021-03-18] MEDS: LISINOPRIL 5 MG TABLET PO SCH (09:38)
[2021-03-18] MEDS: EZETIMIBE 10 MG TABLET (FP) PO SCH (09:39)
[2021-03-18] MEDS: RANOLAZINE E.R. 500 MG TABLET (FP) PO SCH (09:39)
[2021-03-18] MEDS: PANTOPRAZOLE 40 MG TABLET PO SCH (09:39)
[2021-03-18 10:32] LABS: EPI CELLS 6 /uL (0-25.1); HYALINE CASTS 0 /uL (0-3.1); URINE APPEARANCE CLEAR; URINE BACTERIA >9,000 /uL (0-1359); URINE BILIRUBIN NEGATIVE (NEGATIVE); URINE COLOR YELLOW; URINE GLUCOSE (UA) 2+ (NEGATIVE); URINE KETONE NEGATIVE (NEGATIVE); URINE LEUK ESTERASE TRACE (NEGATIVE); URINE NITRITE NEGATIVE (NEGATIVE); URINE PROTEIN NEGATIVE (NEGATIVE); URINE RBC 2 /uL (0-23.9); URINE UROBILINOGEN 0.2 mg/dL (0.2-1.0); URINE WBC 12 /uL (0-25.8)
[2021-03-19] MEDS: RANOLAZINE E.R. 500 MG TABLET (FP) PO SCH ×3 (00:33→21:53)
[2021-03-19] MEDS: TICAGRELOR 90 MG TABLET PO SCH ×3 (00:33→21:53)
[2021-03-19] MEDS: METOPROLOL TARTRATE 50 MG TABLET (FP) PO SCH ×3 (00:33→21:53)
[2021-03-19] MEDS: MELATONIN 5 MG TABLETS PO SCH ×2 (00:33→21:53)
[2021-03-19] MEDS: THIAMINE HCL 100 MG TABLET (FP) PO SCH ×2 (00:33→21:53)
[2021-03-19] MEDS ORDERED: PT OWN MED DRAWER 7, Y5N ONE ×2 (07:21→08:26)
[2021-03-19] MEDS: sitaGLIPtin PHOSPHATE 50 MG TABLET PO SCH (07:26)
[2021-03-19] MEDS: metFORMIN HCL 500 MG TABLET (FP) PO SCH ×2 (07:26→17:11)
[2021-03-19] MEDS: TAMSULOSIN HCL 0.4 MG CAP PO SCH (07:31)
[2021-03-19] MEDS: ASPIRIN 81 MG CHEWABLE TABLETS PO SCH (09:59)
[2021-03-19] MEDS ORDERED: SERTRALINE HCL 25 MG TABLET (FP) PO SCH (10:00)
[2021-03-19] MEDS: PANTOPRAZOLE 40 MG TABLET PO SCH (10:00)
[2021-03-19] MEDS: amLODIPine BESYLATE 5 MG TABLET (FP) PO SCH (10:00)
[2021-03-19] MEDS: PRENATAL VITAMINS W/ FOLIC ACID TABLET (FP) PO SCH (10:00)
[2021-03-19] MEDS: LISINOPRIL 5 MG TABLET PO SCH (10:00)
[2021-03-19] MEDS: EZETIMIBE 10 MG TABLET (FP) PO SCH (10:03)
[2021-03-19] MEDS: SERTRALINE HCL 100 MG, SERTRALINE HCL 25 MG PO SCH (10:03)
[2021-03-19] MEDS: ISOSORBIDE MONONITRATE 60 MG TAB.SR.24H (FP) PO SCH (10:03)
[2021-03-19] MEDS: GABAPENTIN 100 MG CAPSULE PO SCH ×2 (13:31→21:53)
[2021-03-19] MEDS ORDERED: MIRTAZAPINE 15 MG TABLET (FP) ONE (21:55)
[2021-03-19] MEDS: MIRTAZAPINE 30 MG TABLET PO SCH (21:56)
[2021-03-20] MEDS ORDERED: PT OWN MED DRAWER 7, Y5N ONE ×3 (04:00→19:46)
[2021-03-20] MEDS: GABAPENTIN 100 MG CAPSULE PO SCH ×3 (06:57→21:36)
[2021-03-20] MEDS: metFORMIN HCL 500 MG TABLET (FP) PO SCH ×2 (06:57→16:50)
[2021-03-20] MEDS: sitaGLIPtin PHOSPHATE 50 MG TABLET PO SCH (06:57)
[2021-03-20] MEDS ORDERED: SERTRALINE HCL 25 MG TABLET (FP) ONE (08:37)
[2021-03-20] MEDS ORDERED: SERTRALINE HCL 50 MG TABLET (FP) ONE (08:37)
[2021-03-20] MEDS: ASPIRIN 81 MG CHEWABLE TABLETS PO SCH (09:48)
[2021-03-20] MEDS: SERTRALINE HCL 100 MG, SERTRALINE HCL 25 MG PO SCH (09:48)
[2021-03-20] MEDS: PRENATAL VITAMINS W/ FOLIC ACID TABLET (FP) PO SCH (09:48)
[2021-03-20] MEDS: LISINOPRIL 5 MG TABLET PO SCH (09:49)
[2021-03-20] MEDS: amLODIPine BESYLATE 5 MG TABLET (FP) PO SCH (09:49)
[2021-03-20] MEDS: RANOLAZINE E.R. 500 MG TABLET (FP) PO SCH ×2 (09:49→21:36)
[2021-03-20] MEDS: METOPROLOL TARTRATE 50 MG TABLET (FP) PO SCH ×2 (09:49→21:36)
[2021-03-20] MEDS: PANTOPRAZOLE 40 MG TABLET PO SCH (09:49)
[2021-03-20] MEDS: ISOSORBIDE MONONITRATE 60 MG TAB.SR.24H (FP) PO SCH (09:49)
[2021-03-20] MEDS: EZETIMIBE 10 MG TABLET (FP) PO SCH (09:50)
[2021-03-20] MEDS: TICAGRELOR 90 MG TABLET PO SCH ×2 (09:50→21:36)
[2021-03-20] MEDS: TAMSULOSIN HCL 0.4 MG CAP PO SCH (09:51)
[2021-03-20] MEDS ORDERED: MIRTAZAPINE 15 MG TABLET (FP) ONE (19:42)
[2021-03-20] MEDS: MIRTAZAPINE 30 MG TABLET PO SCH (21:36)
[2021-03-20] MEDS: THIAMINE HCL 100 MG TABLET (FP) PO SCH (21:36)
[2021-03-21] MEDS ORDERED: PT OWN MED DRAWER 7, Y5N ONE ×2 (05:46→21:33)
[2021-03-21] MEDS: GABAPENTIN 100 MG CAPSULE PO SCH ×3 (06:06→21:29)
[2021-03-21] MEDS: sitaGLIPtin PHOSPHATE 50 MG TABLET PO SCH (07:28)
[2021-03-21] MEDS: metFORMIN HCL 500 MG TABLET (FP) PO SCH ×2 (07:28→16:35)
[2021-03-21] MEDS ORDERED: SERTRALINE HCL 25 MG TABLET (FP) ONE (08:13)
[2021-03-21] MEDS ORDERED: SERTRALINE HCL 50 MG TABLET (FP) ONE (08:13)
[2021-03-21] MEDS: TAMSULOSIN HCL 0.4 MG CAP PO SCH (09:00)
[2021-03-21] MEDS: ASPIRIN 81 MG CHEWABLE TABLETS PO SCH (09:42)
[2021-03-21] MEDS: RANOLAZINE E.R. 500 MG TABLET (FP) PO SCH ×2 (09:42→21:29)
[2021-03-21] MEDS: PANTOPRAZOLE 40 MG TABLET PO SCH (09:43)
[2021-03-21] MEDS: PRENATAL VITAMINS W/ FOLIC ACID TABLET (FP) PO SCH (09:43)
[2021-03-21] MEDS: SERTRALINE HCL 100 MG, SERTRALINE HCL 25 MG PO SCH (09:43)
[2021-03-21] MEDS: TICAGRELOR 90 MG TABLET PO SCH ×2 (09:44→21:32)
[2021-03-21] MEDS: ISOSORBIDE MONONITRATE 60 MG TAB.SR.24H (FP) PO SCH (09:44)
[2021-03-21] MEDS: METOPROLOL TARTRATE 50 MG TABLET (FP) PO SCH ×3 (09:45→21:29)
[2021-03-21] MEDS: EZETIMIBE 10 MG TABLET (FP) PO SCH (09:45)
[2021-03-21] MEDS: LISINOPRIL 5 MG TABLET PO SCH (09:45)
[2021-03-21] MEDS: amLODIPine BESYLATE 5 MG TABLET (FP) PO SCH (09:45)
[2021-03-21] MEDS ORDERED: MIRTAZAPINE 15 MG TABLET (FP) ONE (19:57)
[2021-03-21] MEDS: MIRTAZAPINE 30 MG TABLET PO SCH (21:30)
[2021-03-21] MEDS: THIAMINE HCL 100 MG TABLET (FP) PO SCH (21:30)
[2021-03-22] MEDS ORDERED: PT OWN MED DRAWER 7, Y5N ONE ×4 (03:31→21:31)
[2021-03-22] MEDS: GABAPENTIN 100 MG CAPSULE PO SCH ×3 (06:42→21:28)
[2021-03-22] MEDS: sitaGLIPtin PHOSPHATE 50 MG TABLET PO SCH (06:42)
[2021-03-22] MEDS: metFORMIN HCL 500 MG TABLET (FP) PO SCH ×2 (06:42→16:51)
[2021-03-22] MEDS: TAMSULOSIN HCL 0.4 MG CAP PO SCH (07:40)
[2021-03-22] MEDS ORDERED: SERTRALINE HCL 25 MG TABLET (FP) ONE (08:10)
[2021-03-22] MEDS ORDERED: SERTRALINE HCL 50 MG TABLET (FP) ONE (08:10)
[2021-03-22] MEDS: ASPIRIN 81 MG CHEWABLE TABLETS PO SCH (09:58)
[2021-03-22] MEDS: TICAGRELOR 90 MG TABLET PO SCH ×2 (09:58→21:28)
[2021-03-22] MEDS: PRENATAL VITAMINS W/ FOLIC ACID TABLET (FP) PO SCH (09:59)
[2021-03-22] MEDS: METOPROLOL TARTRATE 50 MG TABLET (FP) PO SCH ×2 (09:59→21:27)
[2021-03-22] MEDS: ISOSORBIDE MONONITRATE 60 MG TAB.SR.24H (FP) PO SCH (09:59)
[2021-03-22] MEDS: amLODIPine BESYLATE 5 MG TABLET (FP) PO SCH (09:59)
[2021-03-22] MEDS: LISINOPRIL 5 MG TABLET PO SCH (10:00)
[2021-03-22] MEDS: RANOLAZINE E.R. 500 MG TABLET (FP) PO SCH ×2 (10:00→21:31)
[2021-03-22] MEDS: PANTOPRAZOLE 40 MG TABLET PO SCH (10:00)
[2021-03-22] MEDS: EZETIMIBE 10 MG TABLET (FP) PO SCH (10:00)
[2021-03-22] MEDS: SERTRALINE HCL 100 MG, SERTRALINE HCL 25 MG PO SCH (10:01)
[2021-03-22] MEDS ORDERED: MIRTAZAPINE 15 MG TABLET (FP) ONE (19:23)
[2021-03-22] MEDS: MIRTAZAPINE 30 MG TABLET PO SCH (21:28)
[2021-03-22] MEDS: THIAMINE HCL 100 MG TABLET (FP) PO SCH (21:29)
[2021-03-23] MEDS ORDERED: PT OWN MED DRAWER 7, Y5N ONE (03:30)
[2021-03-23] MEDS: metFORMIN HCL 500 MG TABLET (FP) PO SCH ×2 (06:32→17:00)
[2021-03-23] MEDS: GABAPENTIN 100 MG CAPSULE PO SCH ×3 (06:32→21:10)
[2021-03-23] MEDS: sitaGLIPtin PHOSPHATE 50 MG TABLET PO SCH (06:32)
[2021-03-23] MEDS: TAMSULOSIN HCL 0.4 MG CAP PO SCH (07:33)
[2021-03-23] MEDS ORDERED: SERTRALINE HCL 50 MG TABLET (FP) ONE (09:12)
[2021-03-23] MEDS ORDERED: SERTRALINE HCL 25 MG TABLET (FP) ONE (09:12)
[2021-03-23] MEDS: EZETIMIBE 10 MG TABLET (FP) PO SCH (09:59)
[2021-03-23] MEDS: PRENATAL VITAMINS W/ FOLIC ACID TABLET (FP) PO SCH (09:59)
[2021-03-23] MEDS: TICAGRELOR 90 MG TABLET PO SCH ×2 (09:59→21:11)
[2021-03-23] MEDS: SERTRALINE HCL 100 MG, SERTRALINE HCL 25 MG PO SCH (10:00)
[2021-03-23] MEDS: ASPIRIN 81 MG CHEWABLE TABLETS PO SCH (10:00)
[2021-03-23] MEDS: PANTOPRAZOLE 40 MG TABLET PO SCH (10:00)
[2021-03-23] MEDS: RANOLAZINE E.R. 500 MG TABLET (FP) PO SCH ×2 (10:02→21:11)
[2021-03-23] MEDS: ISOSORBIDE MONONITRATE 60 MG TAB.SR.24H (FP) PO SCH (10:39)
[2021-03-23] MEDS: METOPROLOL TARTRATE 50 MG TABLET (FP) PO SCH ×2 (10:40→21:10)
[2021-03-23] MEDS: LISINOPRIL 5 MG TABLET PO SCH (10:40)
[2021-03-23] MEDS: amLODIPine BESYLATE 5 MG TABLET (FP) PO SCH (10:41)
[2021-03-23] MEDS ORDERED: ALBUTEROL SO4 HFA INHALER IH PRN (13:26)
[2021-03-23] MEDS ORDERED: MIRTAZAPINE 15 MG TABLET (FP) ONE (19:25)
[2021-03-23] MEDS: MIRTAZAPINE 30 MG TABLET PO SCH (21:09)
[2021-03-23] MEDS: THIAMINE HCL 100 MG TABLET (FP) PO SCH (21:10)
[2021-03-23] MEDS: ATORVASTATIN CA 40 MG TABLET (FP) PO SCH (21:13)
[2021-03-24] MEDS ORDERED: PT OWN MED DRAWER 7, Y5N ONE ×2 (03:56→21:10)
[2021-03-24] MEDS: sitaGLIPtin PHOSPHATE 50 MG TABLET PO SCH (07:07)
[2021-03-24] MEDS: metFORMIN HCL 500 MG TABLET (FP) PO SCH ×2 (07:07→16:34)
[2021-03-24] MEDS: GABAPENTIN 100 MG CAPSULE PO SCH (07:07)
[2021-03-24] MEDS ORDERED: NITROGLYCERIN SUBLINGUAL 1/150 0.4 MG TAB SL PRN (07:28)
[2021-03-24] MEDS ORDERED: SERTRALINE HCL 25 MG TABLET (FP) ONE (09:01)
[2021-03-24] MEDS ORDERED: SERTRALINE HCL 50 MG TABLET (FP) ONE (09:01)
[2021-03-24] MEDS: TAMSULOSIN HCL 0.4 MG CAP PO SCH (09:46)
[2021-03-24] MEDS: ASPIRIN 81 MG CHEWABLE TABLETS PO SCH (09:47)
[2021-03-24] MEDS: ISOSORBIDE MONONITRATE 60 MG TAB.SR.24H (FP) PO SCH (09:47)
[2021-03-24] MEDS: TICAGRELOR 90 MG TABLET PO SCH ×2 (09:47→21:08)
[2021-03-24] MEDS: SERTRALINE HCL 100 MG, SERTRALINE HCL 25 MG PO SCH (10:24)
[2021-03-24] MEDS: PRENATAL VITAMINS W/ FOLIC ACID TABLET (FP) PO SCH (10:24)
[2021-03-24] MEDS: PANTOPRAZOLE 40 MG TABLET PO SCH (10:25)
[2021-03-24] MEDS: amLODIPine BESYLATE 5 MG TABLET (FP) PO SCH (10:25)
[2021-03-24] MEDS: RANOLAZINE E.R. 500 MG TABLET (FP) PO SCH ×2 (10:25→21:07)
[2021-03-24] MEDS: LISINOPRIL 5 MG TABLET PO SCH (10:26)
[2021-03-24] MEDS: METOPROLOL TARTRATE 50 MG TABLET (FP) PO SCH ×2 (10:26→21:10)
[2021-03-24 10:46] LABS: CALCIUM 8.8 mg/dL (8.5-10.1)
[2021-03-24 10:47] LABS: BLOOD UREA NITROGEN 21.2 mg/dL (7-18)
[2021-03-24 10:50] LABS: CREATININE 1.3 mg/dL (0.55-1.3)
[2021-03-24] MEDS ORDERED: MIRTAZAPINE 15 MG TABLET (FP) ONE (18:42)
[2021-03-24] MEDS: THIAMINE HCL 100 MG TABLET (FP) PO SCH (21:06)
[2021-03-24] MEDS: MIRTAZAPINE 30 MG TABLET PO SCH (21:07)
[2021-03-24] MEDS: ATORVASTATIN CA 40 MG TABLET (FP) PO SCH (21:07)
[2021-03-24] MEDS: EZETIMIBE 10 MG TABLET (FP) PO SCH (21:10)
[2021-03-25] MEDS ORDERED: PT OWN MED DRAWER 7, Y5N ONE ×2 (03:26→08:30)
[2021-03-25] MEDS: MAG HYDROX/AL HYDROX/SIMETH 30 ML UNIT-DOSE CUP PO PRN (07:10)
[2021-03-25] MEDS: TAMSULOSIN HCL 0.4 MG CAP PO SCH (07:32)
[2021-03-25] MEDS: sitaGLIPtin PHOSPHATE 50 MG TABLET PO SCH (07:32)
[2021-03-25] MEDS: metFORMIN HCL 500 MG TABLET (FP) PO SCH ×2 (07:32→16:33)
[2021-03-25] MEDS ORDERED: SERTRALINE HCL 50 MG TABLET (FP) ONE (08:29)
[2021-03-25] MEDS ORDERED: SERTRALINE HCL 25 MG TABLET (FP) ONE (08:29)
[2021-03-25] MEDS: LISINOPRIL 5 MG TABLET PO SCH (10:09)
[2021-03-25] MEDS: amLODIPine BESYLATE 5 MG TABLET (FP) PO SCH (10:09)
[2021-03-25] MEDS: PRENATAL VITAMINS W/ FOLIC ACID TABLET (FP) PO SCH (10:09)
[2021-03-25] MEDS: SERTRALINE HCL 100 MG, SERTRALINE HCL 25 MG PO SCH (10:09)
[2021-03-25] MEDS: METOPROLOL TARTRATE 50 MG TABLET (FP) PO SCH ×2 (10:10→21:04)
[2021-03-25] MEDS: ASPIRIN 81 MG CHEWABLE TABLETS PO SCH (10:10)
[2021-03-25] MEDS: PANTOPRAZOLE 40 MG TABLET PO SCH (10:10)
[2021-03-25] MEDS: ISOSORBIDE MONONITRATE 60 MG TAB.SR.24H (FP) PO SCH (10:10)
[2021-03-25] MEDS: RANOLAZINE E.R. 500 MG TABLET (FP) PO SCH ×2 (10:10→21:04)
[2021-03-25] MEDS: TICAGRELOR 90 MG TABLET PO SCH ×2 (10:11→21:05)
[2021-03-25] MEDS ORDERED: MIRTAZAPINE 15 MG TABLET (FP) ONE (18:28)
[2021-03-25] MEDS: THIAMINE HCL 100 MG TABLET (FP) PO SCH (21:04)
[2021-03-25] MEDS: MIRTAZAPINE 30 MG TABLET PO SCH (21:04)
[2021-03-25] MEDS: ATORVASTATIN CA 40 MG TABLET (FP) PO SCH (21:04)
[2021-03-25] MEDS: EZETIMIBE 10 MG TABLET (FP) PO SCH (21:05)
[2021-03-26] MEDS ORDERED: PT OWN MED DRAWER 7, Y5N ONE ×3 (06:28→22:06)
[2021-03-26] MEDS: sitaGLIPtin PHOSPHATE 50 MG TABLET PO SCH (06:30)
[2021-03-26] MEDS: metFORMIN HCL 500 MG TABLET (FP) PO SCH ×2 (06:30→16:46)
[2021-03-26] MEDS: TAMSULOSIN HCL 0.4 MG CAP PO SCH (07:51)
[2021-03-26] MEDS ORDERED: SERTRALINE HCL 25 MG TABLET (FP) ONE (08:37)
[2021-03-26] MEDS ORDERED: SERTRALINE HCL 50 MG TABLET (FP) ONE (08:37)
[2021-03-26] MEDS: TICAGRELOR 90 MG TABLET PO SCH ×2 (09:57→21:58)
[2021-03-26] MEDS: ASPIRIN 81 MG CHEWABLE TABLETS PO SCH (09:57)
[2021-03-26] MEDS: PANTOPRAZOLE 40 MG TABLET PO SCH (09:58)
[2021-03-26] MEDS: PRENATAL VITAMINS W/ FOLIC ACID TABLET (FP) PO SCH (09:58)
[2021-03-26] MEDS: METOPROLOL TARTRATE 50 MG TABLET (FP) PO SCH ×2 (09:58→22:00)
[2021-03-26] MEDS: SERTRALINE HCL 100 MG, SERTRALINE HCL 25 MG PO SCH (09:58)
[2021-03-26] MEDS: amLODIPine BESYLATE 5 MG TABLET (FP) PO SCH (09:58)
[2021-03-26] MEDS: ISOSORBIDE MONONITRATE 60 MG TAB.SR.24H (FP) PO SCH (09:58)
[2021-03-26] MEDS: LISINOPRIL 5 MG TABLET PO SCH (09:58)
[2021-03-26] MEDS: RANOLAZINE E.R. 500 MG TABLET (FP) PO SCH ×2 (09:59→22:00)
[2021-03-26] MEDS ORDERED: MIRTAZAPINE 15 MG TABLET (FP) ONE (20:17)
[2021-03-26] MEDS: ATORVASTATIN CA 40 MG TABLET (FP) PO SCH (22:00)
[2021-03-26] MEDS: THIAMINE HCL 100 MG TABLET (FP) PO SCH (22:00)
[2021-03-26] MEDS: MIRTAZAPINE 30 MG TABLET PO SCH (22:05)
[2021-03-26] MEDS: EZETIMIBE 10 MG TABLET (FP) PO SCH (22:09)
[2021-03-27] MEDS ORDERED: PT OWN MED DRAWER 7, Y5N ONE (06:26)
[2021-03-27] MEDS: sitaGLIPtin PHOSPHATE 50 MG TABLET PO SCH (06:37)
[2021-03-27] MEDS: metFORMIN HCL 500 MG TABLET (FP) PO SCH ×2 (06:37→16:56)
[2021-03-27] MEDS ORDERED: SERTRALINE HCL 25 MG TABLET (FP) ONE (08:42)
[2021-03-27] MEDS ORDERED: SERTRALINE HCL 50 MG TABLET (FP) ONE (08:43)
[2021-03-27] MEDS: TAMSULOSIN HCL 0.4 MG CAP PO SCH (09:30)
[2021-03-27] MEDS: ASPIRIN 81 MG CHEWABLE TABLETS PO SCH (09:47)
[2021-03-27] MEDS: ISOSORBIDE MONONITRATE 60 MG TAB.SR.24H (FP) PO SCH (09:47)
[2021-03-27] MEDS: METOPROLOL TARTRATE 50 MG TABLET (FP) PO SCH ×2 (09:47→21:21)
[2021-03-27] MEDS: PANTOPRAZOLE 40 MG TABLET PO SCH (09:47)
[2021-03-27] MEDS: TICAGRELOR 90 MG TABLET PO SCH ×2 (09:47→21:21)
[2021-03-27] MEDS: RANOLAZINE E.R. 500 MG TABLET (FP) PO SCH ×2 (09:48→21:20)
[2021-03-27] MEDS: SERTRALINE HCL 100 MG, SERTRALINE HCL 25 MG PO SCH (09:48)
[2021-03-27] MEDS: LISINOPRIL 5 MG TABLET PO SCH (09:48)
[2021-03-27] MEDS: amLODIPine BESYLATE 5 MG TABLET (FP) PO SCH (09:48)
[2021-03-27] MEDS: PRENATAL VITAMINS W/ FOLIC ACID TABLET (FP) PO SCH (09:49)
[2021-03-27] MEDS ORDERED: MIRTAZAPINE 15 MG TABLET (FP) ONE (19:27)
[2021-03-27] MEDS: ATORVASTATIN CA 40 MG TABLET (FP) PO SCH (21:20)
[2021-03-27] MEDS: THIAMINE HCL 100 MG TABLET (FP) PO SCH (21:20)
[2021-03-27] MEDS: MIRTAZAPINE 30 MG TABLET PO SCH (21:20)
[2021-03-27] MEDS: EZETIMIBE 10 MG TABLET (FP) PO SCH (21:22)
[2021-03-28] MEDS ORDERED: PT OWN MED DRAWER 7, Y5N ONE ×5 (04:37→20:54)
[2021-03-28] MEDS: sitaGLIPtin PHOSPHATE 50 MG TABLET PO SCH (06:49)
[2021-03-28] MEDS: metFORMIN HCL 500 MG TABLET (FP) PO SCH ×2 (06:49→16:46)
[2021-03-28] MEDS: MAG HYDROX/AL HYDROX/SIMETH 30 ML UNIT-DOSE CUP PO PRN ×2 (08:39→16:47)
[2021-03-28] MEDS: TAMSULOSIN HCL 0.4 MG CAP PO SCH (08:40)
[2021-03-28] MEDS ORDERED: SERTRALINE HCL 50 MG TABLET (FP) ONE (09:06)
[2021-03-28] MEDS ORDERED: SERTRALINE HCL 25 MG TABLET (FP) ONE (09:06)
[2021-03-28] MEDS: LISINOPRIL 5 MG TABLET PO SCH (09:26)
[2021-03-28] MEDS: amLODIPine BESYLATE 5 MG TABLET (FP) PO SCH (09:26)
[2021-03-28] MEDS: RANOLAZINE E.R. 500 MG TABLET (FP) PO SCH ×2 (09:26→21:44)
[2021-03-28] MEDS: PANTOPRAZOLE 40 MG TABLET PO SCH (09:26)
[2021-03-28] MEDS: METOPROLOL TARTRATE 50 MG TABLET (FP) PO SCH ×2 (09:27→21:43)
[2021-03-28] MEDS: SERTRALINE HCL 100 MG, SERTRALINE HCL 25 MG PO SCH (09:27)
[2021-03-28] MEDS: ISOSORBIDE MONONITRATE 60 MG TAB.SR.24H (FP) PO SCH (09:27)
[2021-03-28] MEDS: ASPIRIN 81 MG CHEWABLE TABLETS PO SCH (09:27)
[2021-03-28] MEDS: PRENATAL VITAMINS W/ FOLIC ACID TABLET (FP) PO SCH (09:29)
[2021-03-28] MEDS: TICAGRELOR 90 MG TABLET PO SCH ×2 (09:29→21:43)
[2021-03-28] MEDS ORDERED: MIRTAZAPINE 15 MG TABLET (FP) ONE (20:50)
[2021-03-28] MEDS: EZETIMIBE 10 MG TABLET (FP) PO SCH (21:43)
[2021-03-28] MEDS: MIRTAZAPINE 30 MG TABLET PO SCH (21:44)
[2021-03-28] MEDS: THIAMINE HCL 100 MG TABLET (FP) PO SCH (21:44)
[2021-03-28] MEDS: ATORVASTATIN CA 40 MG TABLET (FP) PO SCH (21:44)
[2021-03-29] MEDS ORDERED: PT OWN MED DRAWER 7, Y5N ONE ×3 (04:30→19:15)
[2021-03-29] MEDS: sitaGLIPtin PHOSPHATE 50 MG TABLET PO SCH (06:59)
[2021-03-29] MEDS: metFORMIN HCL 500 MG TABLET (FP) PO SCH ×2 (06:59→16:46)
[2021-03-29] MEDS ORDERED: SERTRALINE HCL 25 MG TABLET (FP) ONE (08:53)
[2021-03-29] MEDS ORDERED: SERTRALINE HCL 50 MG TABLET (FP) ONE (08:53)
[2021-03-29] MEDS: ASPIRIN 81 MG CHEWABLE TABLETS PO SCH (09:40)
[2021-03-29] MEDS: TICAGRELOR 90 MG TABLET PO SCH ×2 (09:40→21:33)
[2021-03-29] MEDS: PRENATAL VITAMINS W/ FOLIC ACID TABLET (FP) PO SCH (09:40)
[2021-03-29] MEDS: SERTRALINE HCL 100 MG, SERTRALINE HCL 25 MG PO SCH (09:40)
[2021-03-29] MEDS: PANTOPRAZOLE 40 MG TABLET PO SCH (09:40)
[2021-03-29] MEDS: amLODIPine BESYLATE 5 MG TABLET (FP) PO SCH (09:41)
[2021-03-29] MEDS: TAMSULOSIN HCL 0.4 MG CAP PO SCH (09:41)
[2021-03-29] MEDS: METOPROLOL TARTRATE 50 MG TABLET (FP) PO SCH ×2 (09:41→21:32)
[2021-03-29] MEDS: ISOSORBIDE MONONITRATE 60 MG TAB.SR.24H (FP) PO SCH (09:41)
[2021-03-29] MEDS: LISINOPRIL 5 MG TABLET PO SCH (09:41)
[2021-03-29] MEDS: RANOLAZINE E.R. 500 MG TABLET (FP) PO SCH ×2 (09:41→21:32)
[2021-03-29] MEDS ORDERED: MIRTAZAPINE 15 MG TABLET (FP) ONE (19:13)
[2021-03-29] MEDS: MIRTAZAPINE 30 MG TABLET PO SCH (21:32)
[2021-03-29] MEDS: ATORVASTATIN CA 40 MG TABLET (FP) PO SCH (21:32)
[2021-03-29] MEDS: THIAMINE HCL 100 MG TABLET (FP) PO SCH (21:32)
[2021-03-29] MEDS: EZETIMIBE 10 MG TABLET (FP) PO SCH (21:33)
[2021-03-30] MEDS ORDERED: PT OWN MED DRAWER 7, Y5N ONE ×2 (04:19→08:43)
[2021-03-30 06:59] VITALS: TEMP 97.1
[2021-03-30] MEDS: sitaGLIPtin PHOSPHATE 50 MG TABLET PO SCH (06:59)
[2021-03-30] MEDS: metFORMIN HCL 500 MG TABLET (FP) PO SCH (06:59)
[2021-03-30] MEDS ORDERED: SERTRALINE HCL 25 MG TABLET (FP) ONE (08:41)
[2021-03-30] MEDS ORDERED: SERTRALINE HCL 50 MG TABLET (FP) ONE (08:41)
[2021-03-30 09:08] VITALS: BP 151/76; PULSE 84
[2021-03-30] MEDS: amLODIPine BESYLATE 5 MG TABLET (FP) PO SCH (09:39)
[2021-03-30] MEDS: PANTOPRAZOLE 40 MG TABLET PO SCH (09:39)
[2021-03-30] MEDS: TICAGRELOR 90 MG TABLET PO SCH (09:39)
[2021-03-30] MEDS: SERTRALINE HCL 100 MG, SERTRALINE HCL 25 MG PO SCH (09:39)
[2021-03-30] MEDS: LISINOPRIL 5 MG TABLET PO SCH (09:39)
[2021-03-30] MEDS: ASPIRIN 81 MG CHEWABLE TABLETS PO SCH (09:39)
[2021-03-30] MEDS: PRENATAL VITAMINS W/ FOLIC ACID TABLET (FP) PO SCH (09:40)
[2021-03-30] MEDS: RANOLAZINE E.R. 500 MG TABLET (FP) PO SCH (09:41)
[2021-03-30] MEDS: METOPROLOL TARTRATE 50 MG TABLET (FP) PO SCH (09:41)
[2021-03-30] MEDS: TAMSULOSIN HCL 0.4 MG CAP PO SCH (09:42)
[2021-03-30] MEDS: ISOSORBIDE MONONITRATE 60 MG TAB.SR.24H (FP) PO SCH (09:43)
== END 2021-03-30 09:45 | disposition home or self-care (01) | DRG 895 ==
LOC: YASAS 12:53 → Y3E 17:55
PROVIDERS: ADMIT Allergy & Immunology; ATTEND Allergy & Immunology
PROC: HZ42ZZZ Group Counseling for Substance Abuse Treatment, Cognitive-Behavioral (ICD-10-PCS; principal; 2021-03-16)
DX: F10.20 Alcohol dependence, uncomplicated (principal); F33.9 Major depressive disorder, recurrent, unspecified; N17.9 Acute kidney failure, unspecified; I69.351 Hemiplegia and hemiparesis following cerebral infarction affecting right dominant side; F10.280 Alcohol dependence with alcohol-induced anxiety disorder; F10.282 Alcohol dependence with alcohol-induced sleep disorder; F17.210 Nicotine dependence, cigarettes, uncomplicated; F41.9 Anxiety disorder, unspecified; E11.22 Type 2 diabetes mellitus with diabetic chronic kidney disease; I12.9 Hypertensive chronic kidney disease with stage 1 through stage 4 chronic kidney disease, or unspecified chronic kidney disease; N18.9 Chronic kidney disease, unspecified; Z79.84 Long term (current) use of oral hypoglycemic drugs; R94.31 Abnormal electrocardiogram [ECG] [EKG]; E78.5 Hyperlipidemia, unspecified; J44.9 Chronic obstructive pulmonary disease, unspecified; R07.9 Chest pain, unspecified; I45.19 Other right bundle-branch block; I25.2 Old myocardial infarction; I25.10 Atherosclerotic heart disease of native coronary artery without angina pectoris; K21.9 Gastro-esophageal reflux disease without esophagitis; R79.89 Other specified abnormal findings of blood chemistry; L85.3 Xerosis cutis; M21.371 Foot drop, right foot; Z79.82 Long term (current) use of aspirin; Z95.5 Presence of coronary angioplasty implant and graft; Z88.1 Allergy status to other antibiotic agents; Z88.8 Allergy status to other drugs, medicaments and biological substances
CPT/HCPCS: 36415; 80048; 80053; 81003; 82962; 85027; 86780; 93005; 93010; C9803; U0003; U0005